=== PATIENT | female | born 1955 | race Caucasian/White ===

== ENCOUNTER 2016-06-02 10:22 | Emergency (ER) | payer OTHER ==
[~2016-06-02] VITALS: Ht 149.9 cm; Wt 62.0 kg
[~2016-06-02 10:22] MED LIST: ACET325T PO; CIPR500T2 PO; CYCL1TAB29 PO; HYDR-3533 PO; LISI10TA3 PO; METR-1 PO; OMEP20TA PO; TYLETAB34 PO; VIST25CA PO
[2016-06-02 10:27] VITALS: BP 134/77; PULSE 62; RESP 16; TEMP 98.3; O2SAT 98
[2016-06-02] MEDS ORDERED: ONDANSETRON HCL 4 MG/2 ML VIAL IV PUSH ONE (10:30)
[2016-06-02] MEDS ORDERED: SODIUM CHLORIDE 0.9% FLUSH 5 ML FLUSH IVF PRN (10:30)
[2016-06-02 10:32] VITALS: BP 134/77; PULSE 65; RESP 24; TEMP 98.3; O2SAT 100
[2016-06-02 10:49] LABS: AUTOMATED NEUTROPHIL # 11.6 TH/MM3 (1.8-7.7); BASOPHIL # 0.1 TH/MM3 (0-0.2); BASOPHIL % 0.7 % (0.0-2.0); EOSINOPHIL # 0.1 TH/MM3 (0-0.4); EOSINOPHIL % 0.6 % (0.0-4.0); HEMATOCRIT 36.3 % (35.0-46.0); LYMPH % 10.3 % (9.0-44.0); LYMPHOCYTE # 1.5 TH/MM3 (1.0-4.8); MEAN CELL VOLUME 89.5 FL (80.0-100.0); MEAN CORPUSCULAR HEMOGLOBIN 30.5 PG (27.0-34.0); MONO % 8.1 % (0.0-8.0); NEUT % 80.3 % (16.0-70.0); PLATELET COUNT 334 TH/MM3 (150-450); RED BLOOD COUNT 4.06 MIL/MM3 (4.00-5.30); RED CELL DISTRIBUTION WIDTH 12.9 % (11.6-17.2); WHITE BLOOD COUNT 14.5 TH/MM3 (4.0-11.0)
[2016-06-02 10:50] LABS: HEMO FLAGS AUTO DIFF
[2016-06-02 10:58] LABS: APTT (PATIENT) 22.1 SEC (24.3-30.1); PROTHROMBIN TIME - PATIENT 10.6 SEC (9.8-11.6)
[2016-06-02 11:01] VITALS: BP 121/79; PULSE 73; RESP 16; O2SAT 97
[2016-06-02] MEDS ORDERED: HYDR50CA PO (11:01)
--- NOTE | 2016-06-02 11:04 | PD ---
HPI Chief Complaint: Cardiac Complaint Time Seen by Provider: 10:30 Travel History International Travel<30 days: No Contact w/Intl Traveler<30days: No Traveled to known affect area: No History of Present Illness HPI Patient is a 60-year-old female with history of HTN, breast cancer undergoing radiation therapy here with complaint of a near syncopal episode. Patient states that she was doing housework when she felt lightheaded and dizzy, and had a slight vertiginous symptoms as though she might faint. She did not have a syncopal episode but lowered herself to the ground. When EMS arrived, noted blood pressure 70/40. Patient was given 400 mL normal saline bolus in route, with improvement of blood pressure into the 120 systolic. Blood glucose is 121. Apparently last night after drinking she had a fall, describes this as mechanical and sustained a superficial laceration to the chin. Denies LOC or headache. She has had several month history of shortness of breath and is a half pack per day smoker. Denies any history of DVT, PE. States that she has breast cancer in the left breast only, and to her knowledge and has not metastasized elsewhere. Patient's symptoms have essentially resolved at this time, only complaining of slight nausea. PFSH Past Medical History Blood Disorders: No Anxiety: Yes Heart Rhythm Problems: No Cancer: Yes (BREAST ) Cardiac Catheterization: No Cardiovascular Problems: Yes (HTN) High Cholesterol: No Congestive Heart Failure: No Diabetes: No Diminished Hearing: No Endocrine: No Hepatitis: No Hiatal Hernia: No Hypertension: Yes Immune Disorder: No Psychiatric: No Reproductive: No Respiratory: No Immunizations Current: No Myocardial Infarction: No Thyroid Disease: No Influenza Vaccination: No Menopausal: Yes : 2 Para: 2 Ovarian Cysts: Yes Dilation and Curettage (D&C): Yes Tubal Ligation: Yes Past Surgical History Coronary Artery Bypass Graft: No Gynecologic Surgery: Yes (TUBAL LIGATION) Mastectomy: Yes Pacemaker: No Other Surgery: Yes (BREAST AUG) Social History Alcohol Use: Yes (BEER/WINE WEEKLY) Tobacco Use: Yes Substance Use: No Allergies-Medications (Allergen,Severity, Reaction): Coded Allergies: No Known Allergies (Verified , 04/04/16) Reported Meds & Prescriptions Reported Meds & Active Scripts Active Reported Hydroxyzine Pamoate 50 Mg Cap 37.5 Mg PO HS Tylenol-Codeine #3 (Acetaminophen-Codeine) 300-30 mg Tab 1 Tab PO NEEDED PRN Acetaminophen 325 Mg Tab 650 Mg PO Q4-6H PRN Omeprazole 20 Mg Tab 20 Mg PO BID PRN Lisinopril 10 Mg Tab 10 Mg PO BID Review of Systems Except as stated in HPI: all other systems reviewed are Neg Physical Exam Narrative GENERAL: Adult female smelling heavily of alcohol in no acute distress SKIN: Warm and dry. Superficial laceration to the chin, hemostatic HEAD: Atraumatic. Normocephalic. EYES: Pupils equal and round. No scleral icterus. No injection or drainage. ENT: No nasal bleeding or discharge. Mucous membranes pink and moist. NECK: Supple without bruit, midline tenderness to palpation CARDIOVASCULAR: Regular rate and rhythm. No murmur appreciated. RESPIRATORY: No accessory muscle use. Clear to auscultation. Breath sounds equal bilaterally. GASTROINTESTINAL: Abdomen soft, non-tender, nondistended. MUSCULOSKELETAL: Moves all extremity's normally NEUROLOGICAL: Awake and alert. No obvious cranial nerve deficits. Motor grossly within normal limits. Normal speech. PSYCHIATRIC: Appropriate mood and affect; insight and judgment normal. Data Data Last Documented VS Vital Signs Date Time Temp Pulse Resp B/P Pulse Ox O2 Delivery O2 Flow Rate FiO2 06/02/16 11:01 73 16 121/79 97 Room Air 06/02/16 10:32 98.3 Orders Electrocardiogram (06/02/16 10:30) Basic Metabolic Panel (Bmp) (06/02/16 10:30) Complete Blood Count With Diff (06/02/16 10:30) Troponin I (06/02/16 10:30) Act Partial Throm Time (Ptt) (06/02/16 10:30) Prothrombin Time / Inr (Pt) (06/02/16 10:30) Ecg Monitoring (06/02/16 10:30) Iv Access Insert/Monitor (06/02/16 10:30) Oximetry (06/02/16 10:30) Sodium Chloride 0.9% Flush (Ns Flush) (06/02/16 10:30) Alcohol (Ethanol) (06/02/16 10:30) Ct Pulmonary Angiogram (06/02/16 10:30) Ondansetron Inj (Zofran Inj) (06/02/16 10:30) Ct Brain W/O Iv Contrast(Rout) (06/02/16 ) Sodium Chlor 0.9% 1000 Ml Inj (Ns 1000 M (06/02/16 11:30) Acetaminophen (Tylenol) (06/02/16 11:30) Iodixanol 320 Inj (Rad Ct) (Visipaque 32 (06/02/16 11:49) Labs Laboratory Tests Test 06/02/16 10:31 White Blood Count 14.5 TH/MM3 Red Blood Count 4.06 MIL/MM3 Hemoglobin 12.4 GM/DL Hematocrit 36.3 % Mean Corpuscular Volume 89.5 FL Mean Corpuscular Hemoglobin 30.5 PG Mean Corpuscular Hemoglobin 34.0 % Concent Red Cell Distribution Width 12.9 % Platelet Count 334 TH/MM3 Mean Platelet Volume 6.8 FL Neutrophils (%) (Auto) 80.3 % Lymphocytes (%) (Auto) 10.3 % Monocytes (%) (Auto) 8.1 % Eosinophils (%) (Auto) 0.6 % Basophils (%) (Auto) 0.7 % Neutrophils # (Auto) 11.6 TH/MM3 Lymphocytes # (Auto) 1.5 TH/MM3 Monocytes # (Auto) 1.2 TH/MM3 Eosinophils # (Auto) 0.1 TH/MM3 Basophils # (Auto) 0.1 TH/MM3 CBC Comment AUTO DIFF Differential Total Cells 100 Counted Neutrophils % (Manual) 71 % Band Neutrophils % 4 % Lymphocytes % 14 % Monocytes % 9 % Basophils % 1 % Neutrophils # (Manual) 11.0 TH/MM3 Metamyelocytes 1 % Differential Comment FINAL DIFF MANUAL Platelet Estimate NORMAL Platelet Morphology Comment NORMAL Red Cell Morphology Comment NORMAL Prothrombin Time 10.6 SEC Prothromb Time International 1.0 RATIO Ratio Activated Partial 22.1 SEC Thromboplast Time Sodium Level 139 MEQ/L Potassium Level 4.2 MEQ/L Chloride Level 104 MEQ/L Carbon Dioxide Level 24.8 MEQ/L Anion Gap 10 MEQ/L Blood Urea Nitrogen 17 MG/DL Creatinine 1.44 MG/DL Estimat Glomerular Filtration 37 ML/MIN Rate Random Glucose 88 MG/DL Calcium Level 8.6 MG/DL Troponin I LESS THAN 0.02 NG/ML Ethyl Alcohol Level 131 MG/DL [facility] Medical Decision Making Medical Screen Exam Complete: Yes Emergency Medical Condition: Yes Medical Record Reviewed: Yes Differential Diagnosis 60-year-old female with history of HTN, breast cancer undergoing radiation therapy here with near syncopal episode and hypotension per EMS not results. Differential includes vasovagal spell, orthostatic hypotension, dehydration, electrolyte abnormality, symptomatic anemia, ACS, arrhythmia, pulmonary embolism , closed head injury, skull fracture, ICH, alcohol intoxication, central versus peripheral vertigo. Narrative Course Patient placed on monitor, IV established and blood obtained. A twelve-lead EKG shows sinus rhythm without notable ST or T-wave abnormalities and normal intervals. Given 4 mg Zofran. CBC, BMP, troponin, coags, blood alcohol level obtained and notable for WBC 14.5, blood alcohol level 131. CT of the brain showed no acute abnormality. CT pulmonary angiogram showed no evidence of PE. Patient was able ambulate without any difficulty. Blood pressure remained stable and patient will be discharged home. Diagnosis Primary Impression: Orthostatic hypotension Additional Impression: Pre-syncope Referrals: Primary Care Physician as needed Additional Instructions: Follow-up with primary care provider as needed. Return to the ER for the warning signs discussed. Med/Other Pt SpecificInfo: No Change to Meds Disposition: 01 DISCHARGE HOME Condition: Stable Irma Rebolledo MD Jun 02, 2016 11:04
[2016-06-02 11:11] LABS: ANION GAP 10 MEQ/L (5-15); BICARBONATE 24.8 MEQ/L (21.0-32.0); BLOOD UREA NITROGEN 17 MG/DL (7-18); CHLORIDE 104 MEQ/L (98-107); GLOMERULAR FILTRATION RATE 37 ML/MIN (>89); POTASSIUM 4.2 MEQ/L (3.5-5.1); SODIUM (NA) 139 MEQ/L (136-145)
[2016-06-02 11:28] LABS: BANDS 4 % (0-6); BASOPHILS 1 % (0-2); METAMYELOCYTES 1 % (0-1); POLYS (SEG NEUTROPHILS) 71 % (16-70); WBC DIFF SAMPLE 100
[2016-06-02 11:29] LABS: PLATELET ESTIMATE SMEAR NORMAL (NORMAL); PLATELET MORPHOLOGY NORMAL (NORMAL); SCAN/DIFF FINAL DIFF MANUAL
[2016-06-02] MEDS ORDERED: SODIUM CHLOR 0.9% 1000 ML INJ 1,000 ML IV ONE (11:30)
[2016-06-02] MEDS ORDERED: ACETAMINOPHEN 500 MG CPLT PO ONE (11:30)
[2016-06-02] MEDS ORDERED: IODIXANOL 320 MG/ML 50 ML VIAL (for Rad CT) IV ONE (11:49)
--- NOTE | 2016-06-02 12:01 | RADRPT ---
EXAM DATE/TIME: 06/02/2016 11:36 [facility] COMPARISON: CT ABDOMEN & PELVIS W CONTRAST, May 11, 2016, 22:18. INDICATIONS : Evaaluate for emboli. IV CONTRAST: 50 cc Visipaque (iodixanol) IV RADIATION DOSE: 12.45 CTDIvol (mGy) MEDICAL HISTORY : Carcinoma, breast. SURGICAL HISTORY : Breast implants. ENCOUNTER: Initial ACUITY: 1 day PAIN SCALE: 0/10 LOCATION: Bilateral chest TECHNIQUE: Volumetric scanning of the chest was performed using a pulmonary embolism protocol MIP images were reconstructed. Using automated exposure control and adjustment of the mA and/or kV acco rding to patient size, radiation dose was kept as low as reasonably achievable to obtain optimal diag nostic quality images. FINDINGS: There are no suspicious lung lesions identified. There is no axillary or mediastinal adenopathy. There is good visualization of the central pulmonary vessels. I see no evidence for central pulmonar y emboli. The portion of the liver and spleen identified are free of focal defects. Calcification is seen in t he dome of the liver. CONCLUSION: There is no evidence for central pulmonary emboli. Calcifications present in the dom e of the liver described on the CT scan of 05/11/16 Sandor Gutierrez MD FACR on June 02, 2016 at 11:58 Board Certified Radiologist. This report was verified electronically.
--- NOTE | 2016-06-02 12:05 | RADRPT ---
EXAM DATE/TIME: 06/02/2016 11:35 [facility] COMPARISON: CT BRAIN W/O CONTRAST, January 16, 2013, 23:56. INDICATIONS : Syncopal episode. RADIATION DOSE: 56.35 CTDIvol (mGy) MEDICAL HISTORY : Carcinoma, breast. SURGICAL HISTORY : None. ENCOUNTER: Initial ACUITY: 1 day PAIN SCALE: 0/10 LOCATION: cranial TECHNIQUE: Multiple contiguous axial images were obtained of the head. Using automated exposure control and adj ustment of the mA and/or kV according to patient size, radiation dose was kept as low as reasonably a chievable to obtain optimal diagnostic quality images. FINDINGS: CEREBRUM: The ventricles are normal for age. No evidence of midline shift, mass lesion, hemorrhage or acute in farction. No extra-axial fluid collections are seen. POSTERIOR FOSSA: The cerebellum and brainstem are intact. The 4th ventricle is midline. The cerebellopontine angle i s unremarkable. EXTRACRANIAL: The visualized portion of the orbits is intact. SKULL: The calvaria is intact. No evidence of skull fracture. CONCLUSION: Negative for an acute process. Sandor Gutierrez MD FACR on June 02, 2016 at 12:01 Board Certified Radiologist. This report was verified electronically.
[2016-06-02 12:38] VITALS: BP 121/70; PULSE 75; RESP 16; O2SAT 97
--- NOTE | 2016-06-02 17:40 | EKG ---
Date Performed: 06/02/2016 Time Performed: 10:30:02 PTAGE: 60 years EKG: Sinus rhythm NORMAL ECG PREVIOUS TRACING : 06/08/2015 17.48 No significant change from previous tracing noted. DOCTOR: Karthik Rapp Interpretating Date/Time 06/02/2016 17:39:02
[2016-07-05] MEDS ORDERED: ANAS1TAB PO (10:19)
[2016-07-05] MEDS ORDERED: VENL75TA PO (10:19)
[2016-07-05] MEDS ORDERED: CYCL1TAB29 PO (10:19)
[2016-08-08] MEDS ORDERED: LISI10TA3 PO ×2 (15:24→15:25)
== END 2016-06-02 12:56 | disposition home or self-care (01) ==
LOC: NEPC 10:22
DX: I95.1 Orthostatic hypotension (principal); R55 Syncope and collapse; I10 Essential (primary) hypertension; R06.02 Shortness of breath; F17.210 Nicotine dependence, cigarettes, uncomplicated; S01.81XA Laceration without foreign body of other part of head, initial encounter; C50.912 Malignant neoplasm of unspecified site of left female breast
CPT/HCPCS: 70450; 71275; 80048; 80320; 84484; 85007; 85027; 85610; 85730; 93005; 96361; 96374; 99285; J2405; J7030; Q9967

== ENCOUNTER 2016-08-02 23:41 | Inpatient (IN) | payer OTHER ==
[~2016-08-02] VITALS: Ht 149.9 cm; Wt 64.9 kg
[~2016-08-02 23:41] MED LIST changes: +ANAS1TAB PO; -CIPR500T2 PO; -HYDR-3533 PO; +HYDR50CA PO; -METR-1 PO; +VENL75TA PO; -VIST25CA PO
[2016-08-02 23:48] VITALS: BP 123/74; PULSE 73; RESP 20; TEMP 97.9; O2SAT 99
--- NOTE | 2016-08-02 23:56 | PD ---
HPI Chief Complaint: Injury Time Seen by Provider: 23:53 Travel History International Travel<30 days: No Contact w/Intl Traveler<30days: No Traveled to known affect area: No History of Present Illness HPI 61-year-old female complains of right ankle pain. Patient states that she fell and twisted the right ankle this evening. Patient denies any headache. Patient denies any neck pain. Patient denies any chest pain or shortness of breath. Patient denies abdominal pain. Patient denies any other injury. Patient states the pain is sharp severe pain localized to right ankle. Patient denies any pain radiation. On a scale of 1-10 the pain is a 10. PFSH Past Medical History Blood Disorders: No Anxiety: Yes Heart Rhythm Problems: No Cancer: Yes (BREAST ) Cardiac Catheterization: No Cardiovascular Problems: Yes (HTN) High Cholesterol: No Congestive Heart Failure: No Diabetes: No Diminished Hearing: No Endocrine: No Hepatitis: No Hiatal Hernia: No Hypertension: Yes Immune Disorder: No Psychiatric: No Reproductive: No Respiratory: No Immunizations Current: No Myocardial Infarction: No Thyroid Disease: No ?: Not Menopausal: Yes : 2 Para: 2 Ovarian Cysts: Yes Dilation and Curettage (D&C): Yes Tubal Ligation: Yes Past Surgical History Coronary Artery Bypass Graft: No Gynecologic Surgery: Yes (TUBAL LIGATION) Mastectomy: Yes Pacemaker: No Other Surgery: Yes (BREAST AUG) Social History Alcohol Use: Yes (BEER/WINE WEEKLY) Tobacco Use: Yes Substance Use: No Allergies-Medications (Allergen,Severity, Reaction): Coded Allergies: No Known Allergies (Verified , 08/02/16) Reported Meds & Prescriptions Reported Meds & Active Scripts Active Reported Flexeril (Cyclobenzaprine HCl) 10 Mg Tab 10 Mg PO TID PRN Anastrozole 1 Mg Tab 1 Mg PO DAILY Hydroxyzine Pamoate 50 Mg Cap 37.5 Mg PO HS Tylenol-Codeine #3 (Acetaminophen-Codeine) 300-30 mg Tab 1 Tab PO NEEDED PRN Acetaminophen 325 Mg Tab 650 Mg PO Q4-6H PRN Omeprazole 20 Mg Tab 20 Mg PO BID PRN Lisinopril 10 Mg Tab 10 Mg PO BID Review of Systems General / Constitutional: No: Fever Eyes: No: Visual changes HENT: No: Headaches Cardiovascular: No: Chest Pain or Discomfort Respiratory: No: Shortness of Breath Gastrointestinal: No: Abdominal Pain Genitourinary: No: Dysuria Musculoskeletal: Positive: Pain Skin: No Rash Neurologic: No: Weakness Psychiatric: No: Depression Endocrine: No: Polydipsia Hematologic/Lymphatic: No: Easy Bruising Physical Exam Narrative GENERAL: Well-nourished, well-developed patient. SKIN: Warm and dry. HEAD: Normocephalic. EYES: No scleral icterus. No injection or drainage. NECK: Supple, trachea midline. No JVD or lymphadenopathy. CARDIOVASCULAR: Regular rate and rhythm without murmurs, gallops, or rubs. RESPIRATORY: Breath sounds equal bilaterally. No accessory muscle use. GASTROINTESTINAL: Abdomen soft, non-tender, nondistended. MUSCULOSKELETAL: Patient ecchymosis swelling tenderness medial and lateral malleolus area of the right ankle. Full range of motion of the toes. BACK: Nontender without obvious deformity. No CVA tenderness. Neurologic exam normal Data Data Last Documented VS Vital Signs Date Time Temp Pulse Resp B/P Pulse Ox O2 Delivery O2 Flow Rate FiO2 08/02/16 23:51 75 20 99 Room Air 08/02/16 23:48 97.9 123/74 Orders Ankle, Complete ([id number]) (08/02/16 23:53) Complete Blood Count With Diff (08/03/16 00:48) Basic Metabolic Panel (Bmp) (08/03/16 00:48) Prothrombin Time / Inr (Pt) (08/03/16 00:48) Act Partial Throm Time (Ptt) (08/03/16 00:48) Urinalysis - C+S If Indicated (08/03/16 00:48) Chest, Single Ap (08/03/16 00:48) Iv Access Insert/Monitor (08/03/16 00:48) Morphine Inj (Morphine Inj) (08/03/16 01:00) Ondansetron Inj (Zofran Inj) (08/03/16 01:00) Splint Or Brace Apply/Monitor (08/03/16 01:14) Sodium Chlor 0.9% 1000 Ml Inj (Ns 1000 M (08/03/16 01:15) Labs Laboratory Tests Test 08/03/16 00:58 White Blood Count 11.3 TH/MM3 Red Blood Count 4.58 MIL/MM3 Hemoglobin 13.8 GM/DL Hematocrit 41.2 % Mean Corpuscular Volume 89.9 FL Mean Corpuscular Hemoglobin 30.1 PG Mean Corpuscular Hemoglobin 33.5 % Concent Red Cell Distribution Width 13.7 % Platelet Count 342 TH/MM3 Mean Platelet Volume 6.9 FL Neutrophils (%) (Auto) 72.4 % Lymphocytes (%) (Auto) 17.4 % Monocytes (%) (Auto) 7.8 % Eosinophils (%) (Auto) 1.8 % Basophils (%) (Auto) 0.6 % Neutrophils # (Auto) 8.2 TH/MM3 Lymphocytes # (Auto) 2.0 TH/MM3 Monocytes # (Auto) 0.9 TH/MM3 Eosinophils # (Auto) 0.2 TH/MM3 Basophils # (Auto) 0.1 TH/MM3 CBC Comment DIFF FINAL Differential Comment MDM Medical Decision Making Medical Screen Exam Complete: Yes Emergency Medical Condition: Yes Differential Diagnosis Differential diagnosis including sprain, fracture, dislocation. Narrative Course 61-year-old female with right ankle injury. Normal saline solution 1 25 cc an hour. Morphine 2 mg IV. Zofran 4 mg IV. Diagnosis Primary Impression: Fracture dislocation of right ankle joint Qualified Code: S82.891A - Fracture dislocation of right ankle joint, closed, initial encounter Admitting Information Admitting Physician Requests: Admit Carlos Rojas MD Aug 02, 2016 23:56
[2016-08-03] MEDS ORDERED: MORPHINE SULFATE 4 MG/ML INJ IV PUSH ONE (01:00)
[2016-08-03] MEDS ORDERED: ONDANSETRON HCL 4 MG/2 ML VIAL IV PUSH ONE ×2 (01:00→11:32)
--- NOTE | 2016-08-03 01:03 | RADRPT ---
EXAM DATE/TIME: 08/03/2016 00:19 [facility] COMPARISON: No previous studies available for comparison. INDICATIONS : Tripped while walking, right ankle pain. MEDICAL HISTORY : None. SURGICAL HISTORY : None. ENCOUNTER: Initial ACUITY: 1 day PAIN SCORE: 8/10 LOCATION: Right medial ankle. FINDINGS: There is a horizontal fracture of the medial malleolus with inferior and lateral displacement of the fracture fragment. There is an oblique fracture of the distal metaphysis of the fibula with one half shaft width lateral displacement of the distal fracture fragment. Small bony fragments in the soft tissue adjacent to the proximal line of the fracture. There is disruption of the ankle mortise with the talus displaced anterior and widening of the medial mortise. No radiopaque foreign bodies seen. CONCLUSION: Fracture dislocation of the ankle suggesting an eversion type injury. Patricio Marquis MD on August 03, 2016 at 1:00 Board Certified Radiologist. This report was verified electronically.
[2016-08-03] MEDS ORDERED: SODIUM CHLOR 0.9% 1000 ML INJ 1,000 ML IV SCH ×2 (01:15→01:56)
--- NOTE | 2016-08-03 01:18 | RADRPT ---
EXAM DATE/TIME: 08/03/2016 00:58 [facility] COMPARISON: CHEST SINGLE AP, June 08, 2015, 9:54. INDICATIONS : Evaluate for pneumonia, pneumothorax or communicable disease. Pre-op for right ankle fracture. MEDICAL HISTORY : Carcinoma, breast. SURGICAL HISTORY : None. ENCOUNTER: Subsequent ACUITY: 1 day PAIN SCORE: 0/10 LOCATION: Bilateral chest FINDINGS: A single view of the chest demonstrates the lungs to be symmetrically aerated without evidence of mas s, infiltrate or effusion. The cardiomediastinal contours are unremarkable. Osseous structures are intact. CONCLUSION: The lungs are clear. Patricio Marquis MD on August 03, 2016 at 1:17 Board Certified Radiologist. This report was verified electronically.
[2016-08-03 01:21] LABS: AUTOMATED NEUTROPHIL # 8.2 TH/MM3 (1.8-7.7); BASOPHIL # 0.1 TH/MM3 (0-0.2); BASOPHIL % 0.6 % (0.0-2.0); EOSINOPHIL # 0.2 TH/MM3 (0-0.4); EOSINOPHIL % 1.8 % (0.0-4.0); HEMATOCRIT 41.2 % (35.0-46.0); HEMO FLAGS DIFF FINAL; LYMPH % 17.4 % (9.0-44.0); MEAN CELL VOLUME 89.9 FL (80.0-100.0); MEAN CORPUSCULAR HEMOGLOBIN 30.1 PG (27.0-34.0); MEAN CORPUSCULAR HGB CONC 33.5 % (32.0-36.0); MONO % 7.8 % (0.0-8.0); NEUT % 72.4 % (16.0-70.0); PLATELET COUNT 342 TH/MM3 (150-450); RED BLOOD COUNT 4.58 MIL/MM3 (4.00-5.30); RED CELL DISTRIBUTION WIDTH 13.7 % (11.6-17.2); WHITE BLOOD COUNT 11.3 TH/MM3 (4.0-11.0)
[2016-08-03 01:48] LABS: APTT (PATIENT) 26.5 SEC (24.3-30.1); INTERNATIONAL NORMALIZED RATIO 0.9 RATIO; PROTHROMBIN TIME - PATIENT 10.2 SEC (9.8-11.6)
[2016-08-03 01:52] LABS: BICARBONATE 25.7 MEQ/L (21.0-32.0); POTASSIUM 4.2 MEQ/L (3.5-5.1)
[2016-08-03] MEDS ORDERED: SODIUM CHLORIDE 0.9% FLUSH 5 ML FLUSH FLUSH PRN (02:00)
[2016-08-03] MEDS ORDERED: ACETAMINOPHEN/HYDROcodone 325 MG/5 MG TAB PO PRN (02:00)
[2016-08-03] MEDS ORDERED: ONDANSETRON HCL 4 MG/2 ML VIAL IVP PRN (02:00)
[2016-08-03] MEDS ORDERED: BISACODYL 10 MG SUPP PR PRN (02:00)
[2016-08-03] MEDS ORDERED: MORPHINE SULFATE 4 MG/ML INJ IV PRN (02:00)
[2016-08-03] MEDS ORDERED: CYCLOBENZAPRINE HCL 10 MG TAB PO PRN (02:00)
[2016-08-03] MEDS ORDERED: ACETAMINOPHEN 325 MG TAB PO PRN (02:00)
[2016-08-03] MEDS ORDERED: VENLAFAXINE HCL 75 MG TAB PO PRN (02:15)
[2016-08-03 03:54] VITALS: BP 117/82; PULSE 86; RESP 20; TEMP 97.2; O2SAT 97
--- NOTE | 2016-08-03 03:55 | HHI.HP ---
HPI Service [facility] Primary Care Physician RUBEN Castro Admission Diagnosis fracture dislocation right ankle Diagnoses: (1) Fall Diagnosis: Principal (2) Ankle fracture, right Diagnosis: Principal (3) Leukocytosis Diagnosis: Principal (4) Tobacco abuse Diagnosis: Principal Travel History International Travel<30 Days: No Contact w/Intl Traveler <30 Da: No Traveled to Known Affected Are: No History of Present Illness This is a 61-year-old female with a PMH of Anxiety, HTN, Breast CA and Tobacco Abuse who is brought to the ER with complaints of right ankle pain after fall. Per pt she was walking down steps at her home when she slipped and fell. No head trauma or LOC. Does admit to drinking several beers and some wine this evening, no h/o Alcohol Abuse. Reports immediate right ankle pain, unable to bare weight. On arrival, vital stable. WBC 11.3. Chemistry unremarkable. CXR with no acute findings. Ankle X-ray with fracture dislocation of the ankle suggesting an inversion type injury. Dr. Frazier consulted by ER physician, is for surgical intervention. Review of Systems Except as stated in HPI: all other systems reviewed are Neg ROS: 14 point review of systems otherwise negative. Past Family Social History Past Medical History PMH: Anxiety, HTN, Breast CA and Tobacco Abuse Past Surgical History PAST SURGICAL HISTORY: Tubal Ligation, Mastectomy, Breast Augmentation Allergies: Coded Allergies: No Known Allergies (Verified , 08/02/16) Family History PAST FAMILY HISTORY: Reviewed. No h/o DM or CAD Social History PAST SOCIAL HISTORY: Drinks weekly. Smokes 1ppd. Negative for drugs. Physical Exam Vital Signs Vital Signs Date Time Temp Pulse Resp B/P Pulse Ox O2 Delivery O2 Flow Rate FiO2 08/02/16 23:51 75 20 99 Room Air 08/02/16 23:48 97.9 73 20 123/74 99 Physical Exam PE: GENERAL: Middle-aged female in no acute distress. HEENT: PERRLA, EOMI. No scleral icterus or conjunctival pallor. No lid lag or facial droop. CARDIOVASCULAR: Regular rate and rhythm. No obvious murmurs to auscultation. No chest tenderness to palpation. RESPIRATORY: No obvious rhonchi or wheezing. Clear to auscultation. Breath sounds equal bilaterally. GASTROINTESTINAL: Abdomen soft, non-tender, nondistended. BS normal. MUSCULOSKELETAL: Extremities without clubbing, cyanosis, or edema. No obvious deformities. Decreased ROM of RLE due to injury NEUROLOGICAL: Awake, alert and oriented x4. No focal neurologic deficits. Moving both upper and lower extremities spontaneously. Laboratory Laboratory Tests Test 08/03/16 00:58 White Blood Count 11.3 Red Blood Count 4.58 Hemoglobin 13.8 Hematocrit 41.2 Mean Corpuscular Volume 89.9 Mean Corpuscular Hemoglobin 30.1 Mean Corpuscular Hemoglobin 33.5 Concent Red Cell Distribution Width 13.7 Platelet Count 342 Mean Platelet Volume 6.9 Neutrophils (%) (Auto) 72.4 Lymphocytes (%) (Auto) 17.4 Monocytes (%) (Auto) 7.8 Eosinophils (%) (Auto) 1.8 Basophils (%) (Auto) 0.6 Neutrophils # (Auto) 8.2 Lymphocytes # (Auto) 2.0 Monocytes # (Auto) 0.9 Eosinophils # (Auto) 0.2 Basophils # (Auto) 0.1 CBC Comment DIFF FINAL Differential Comment Prothrombin Time 10.2 Prothromb Time International 0.9 Ratio Activated Partial 26.5 Thromboplast Time Sodium Level 140 Potassium Level 4.2 Chloride Level 106 Carbon Dioxide Level 25.7 Anion Gap 8 Blood Urea Nitrogen 10 Creatinine 0.64 Estimat Glomerular Filtration 94 Rate Random Glucose 100 Calcium Level 8.7 Result Diagram: 08/03/165708/03/1657 Assessment and Plan Problem List: (1) Fall ICD Code: W19.XXXA Status: Acute (2) Ankle fracture, right ICD Code: S82.891A Status: Acute (3) Leukocytosis ICD Code: D72.829 Status: Acute (4) Tobacco abuse ICD Code: Z72.0 Status: Acute Assessment and Plan A/P: 1. Fall: s/p mechanical trip and fall down stairs at home, no head trauma or LOC, +alcohol intoxication however no h/o alcohol abuse. 2. Right Ankle Fx: secondary to above. Ankle X-ray w/ fracture dislocation of the ankle suggesting an eversion type injury, images reviewed by me. Dr. Frazier consulted by ER physician, plan is for surgical intervention a.m. Keep NPO, IVF, analgesics/antiemetics. 3. Leukocytosis: WBC 11.3 w/ mild shift, afebrile. Likely secondary to recent injury. CXR w/ no acute findings, images reviewed by me. Repeat labs in am. 4. Tobacco Abuse: Pt counselled. Ativan/NicoDerm prn if needed. 5. DVT Prophylaxis: Anticoagulation post-op per Ortho 6. Social work for d/c planning as needed. 7. Case discussed w/ ER physician at length. Physician Certification 2 Midnight Certification Type: Admission for Inpatient Services Order for Inpatient Services The services are ordered in accordance with Medicare regulations or non- Medicare payer requirements, as applicable. In the case of services not specified as inpatient-only, they are appropriately provided as inpatient services in accordance with the 2-midnight benchmark. Estimated LOS (days): 2 days is the estimated time the patient will need to remain in the hospital, assuming treatment plan goals are met and no additional complications. Post-Hospital Plan: Not yet determined Sana Cruz MD Aug 03, 2016 03:55
[2016-08-03] MEDS ORDERED: ceFAZolin INJ 1,000 MG VIAL ONE (07:15)
[2016-08-03] MEDS ORDERED: GENTAMICIN SULFATE 80 MG/2 ML VIAL ONE (07:15)
[2016-08-03] MEDS ORDERED: BUPIVACAINE HCL PF 0.5% 30 ML VIAL ONE (07:15)
[2016-08-03] MEDS ORDERED: VANCOMYCIN HCL 1000 MG VIAL ONE (07:15)
[2016-08-03] MEDS ORDERED: DEXAMETHASONE SOD PHOS 4 MG/ML VIAL ONE (07:43)
[2016-08-03] MEDS ORDERED: ACETAMINOPHEN 1000 MG/100 ML VIAL IV ONE (07:43)
[2016-08-03] MEDS ORDERED: FAMOTIDINE 20 MG/2 ML VIAL ONE (07:45)
[2016-08-03] MEDS: LISINOPRIL 10 MG TAB PO SCH ×2 (09:00→20:21)
[2016-08-03] MEDS: ANASTROZOLE 1 MG TAB PO SCH (09:00)
[2016-08-03] MEDS ORDERED: SODIUM CHLORIDE 0.9% FLUSH 5 ML FLUSH FLUSH SCH (09:00)
[2016-08-03] MEDS ORDERED: HYDR-3288 PO (09:25)
[2016-08-03] MEDS ORDERED: NALOXONE HCL 0.4 MG/ML AMP IV PRN (09:30)
[2016-08-03] MEDS ORDERED: MISCELLANEOUS PHARMACY INFORMATION XX ONE (09:30)
[2016-08-03] MEDS ORDERED: SODIUM CHLORIDE 0.9% FLUSH 5 ML FLUSH IVF PRN (09:30)
[2016-08-03] MEDS ORDERED: MISCELLANEOUS NURSING INFORMATION XX PRN (09:30)
[2016-08-03] MEDS ORDERED: Post-op Orders (for Pharmacy) MISC XX ONE (09:30)
[2016-08-03] MEDS ORDERED: DO NOT ADM ANY ANTICOAGULANT DRUGS XX PRN (09:44)
[2016-08-03] MEDS ORDERED: MIDAZOLAM HCL 2 MG/2 ML VIAL ONE (09:54)
[2016-08-03] MEDS ORDERED: *morphine SULFATE 8 MG/ML PERIprocedure ONLY ONE (09:55)
[2016-08-03] MEDS ORDERED: *RESP: ALBUTEROL 2.5 MG/3 ML NEB (PRN) PERIprocedural Use ONLY NEB ONE (09:56)
[2016-08-03] MEDS ORDERED: MAGNESIUM HYDROXIDE SUSP 30 ML CUP PO PRN (10:00)
[2016-08-03] MEDS: DEXT 5%-NACL 0.45% 1000 ML INJ 1,000 ML IV SCH ×2 (10:00→20:00)
[2016-08-03] MEDS ORDERED: PANTOPRAZOLE SOD 20 MG DELAYED RELEASE TAB PO PRN (10:00)
[2016-08-03] MEDS ORDERED: ACETAMINOPHEN/HYDROcodone 325 MG/7.5 MG TAB PO PRN (10:00)
[2016-08-03] MEDS ORDERED: diphenhydrAMINE HCL 25 MG CAP PO PRN (10:00)
[2016-08-03] MEDS ORDERED: *HYDROmorphone PF 1 MG VIAL PERIprocedural Use ONLY ONE (10:05)
--- NOTE | 2016-08-03 10:20 | RADRPT ---
EXAM DATE/TIME: 08/03/2016 09:16 [facility] COMPARISON: No previous studies available for comparison. INDICATIONS : Open reduction internal fixation of right ankle fracture MEDICAL HISTORY : None. SURGICAL HISTORY : None. ENCOUNTER: Initial ACUITY: 1 day PAIN SCORE: Non-responsive. LOCATION: Right ankle FINDINGS: Two view examination was performed of the right ankle. There is a plate along the lateral aspect of the fibula secured by several screws. There are 2 screws through the medial malleolus and distal tibi a. The ankle appears normally aligned. CONCLUSION: Status post ORIF. Koffi Mcgee MD on August 03, 2016 at 10:17 Board Certified Radiologist. This report was verified electronically.
[2016-08-03] MEDS ORDERED: PROPOFOL 200 MG/20 ML AMP IV ONE (11:32)
[2016-08-03] MEDS ORDERED: LACTATED RINGER'S 1000 ML INJ 1,000 ML IV ONE (11:33)
[2016-08-03] MEDS: ONDANSETRON HCL 4 MG/2 ML VIAL IVP PRN ×2 (11:50→20:20)
[2016-08-03] MEDS: ACETAMINOPHEN/HYDROcodone 325 MG/7.5 MG TAB PO PRN ×2 (11:51→16:31)
[2016-08-03] MEDS: MORPHINE SULFATE 4 MG/ML INJ IV PUSH PRN ×2 (11:51→20:21)
[2016-08-03 12:00] VITALS: BP 128/77; PULSE 88; RESP 18; TEMP 97.2; O2SAT 100
[2016-08-03] MEDS ORDERED: ePHEDrine/NS 25 MG/5 ML SYR IV ONE (12:00)
[2016-08-03] MEDS ORDERED: PHENYLEPH/NS 1000 MCG/10 ML SYR IV ONE (12:00)
--- NOTE | 2016-08-03 12:40 | MB ---
cc: MILENA BETANCOURT DATE OF CONSULTATION: 08/03/2016 REASON FOR CONSULTATION: Right ankle fracture dislocation. HISTORY OF PRESENT ILLNESS: This patient is a 61-year-old female with past history of anxiety, hypertension, breast cancer and tobacco abuse who presented to the [facility] Emergency Room with a chief complaint of severe right ankle pain after a fall. She was going down the stairs. She slipped and fell. She denies loss of consciousness. She was drinking alcohol. She developed the immediate onset of severe pain in the right ankle and was unable to stand, bear weight or move the ankle. No numbness. No tingling. She was given IV morphine. Orthopedic surgery was consulted. She was admitted to the medical service. PAST MEDICAL HISTORY: 1. Anxiety. 2. Hypertension. 3. Breast cancer. 4. Tobacco abuse. PAST SURGICAL HISTORY: 1. Tubal ligation. 2. Mastectomy. 3. Breast augmentation. ALLERGIES: NO KNOWN DRUG ALLERGIES. MEDICATIONS: 1. Lisinopril. 2. Omeprazole. FAMILY HISTORY: Reviewed and noncontributory. SOCIAL HISTORY: She does drink alcohol on a routine basis. She smokes one pack per day. Denies drugs. REVIEW OF SYSTEMS: Negative for ten systems other than the history of present illness. PHYSICAL EXAMINATION: VITAL SIGNS: Temperature 97.9, pulse 73, respirations 20, blood pressure 123/74. GENERAL: In general, the patient is awake, alert, lying in bed in no acute distress. HEAD, EYES, EARS, NOSE, THROAT: Normocephalic and atraumatic. Pupils round and reactive to light. Extraocular muscles intact. NECK: The neck is supple. LUNGS: Clear. HEART: Regular rate and rhythm. ABDOMEN: Abdomen soft and nontender. EXTREMITIES: The right lower extremity has swelling, ecchymosis slight deformity. She is in a well-padded splint. She is tender to palpation along the medial and lateral aspects. She can flex her toes distally with limitation upon motion. LABORATORY STUDIES: White blood cell count 11.3, hemoglobin 30, hematocrit 41. Platelets 342,000. Glucose 100. X-RAYS: Right ankle shows a displaced bimalleolar fracture. IMPRESSION: 1. 61-year-old female status post fall right displaced bimalleolar ankle fracture. 2. History of alcohol intoxication. 3. Tobacco abuse. PLAN: Discussed the diagnosis and treatment options. She was given the option of nonoperative treatment versus surgery to consist of open reduction internal fixation. The risks of surgery were discussed which include but are not limited to anesthesia, bleeding, infection, damage to nerves or blood vessels, pain, stiffness, failure of fixation, painful hardware, nonunion, malunion, blood clots and even . The patient's pain is severe. She favors the benefits over the risks and does wish to proceed with surgery. Written consent has been obtained and we will proceed accordingly. MD BLAYNE Field/LEE /9:30 AM /12:31 PM
[2016-08-03 15:32] LABS: BLOOD, URINE NEG (NEG); COMMENT (UR) CULT NOT INDICATED; CULTURE IF INDICATED CULT NOT INDICATED; GLUCOSE,URINE NEG (NEG); KETONE, URINE NEG (NEG); MUCUS URINE FEW /lpf (OCC); NITRITE,URINE NEG (NEG); SQUAMOUS EPITHELIAL CELL URINE 1 /hpf (0-5); URINE COLOR YELLOW (YELLW/STRAW)
[2016-08-03 16:00] VITALS: BP 121/78; PULSE 84; RESP 18; TEMP 98.3; O2SAT 97
[2016-08-03 16:14] VITALS: O2SAT 98
[2016-08-03 20:17] VITALS: BP 135/82; PULSE 80; RESP 20; TEMP 96; O2SAT 94
[2016-08-03] MEDS: DOCUSATE SODIUM 50 MG/SENNA 8.6 MG TAB PO SCH (20:19)
[2016-08-03] MEDS: SODIUM CHLORIDE 0.9% FLUSH 5 ML FLUSH IVF SCH (20:21)
[2016-08-03] MEDS ORDERED: hydrOXYzine PAMOATE 25 MG CAP PO SCH (21:00)
[2016-08-04 00:23] VITALS: BP 137/88; PULSE 77; RESP 20; TEMP 98.7; O2SAT 94
[2016-08-04] MEDS: MORPHINE SULFATE 4 MG/ML INJ IV PUSH PRN ×3 (01:12→08:52)
[2016-08-04] MEDS: ONDANSETRON HCL 4 MG/2 ML VIAL IVP PRN ×3 (01:12→08:39)
[2016-08-04] MEDS ORDERED: ALUMINUM/MAGNESIUM/SIMETH 30 ML CUP PO PRN (01:15)
[2016-08-04] MEDS ORDERED: oxyCODONE/ACETAMINOPHEN 5 MG/325 MG TAB PO PRN (01:45)
[2016-08-04 04:01] VITALS: BP 140/84; PULSE 72; RESP 21; TEMP 98.7; O2SAT 95
[2016-08-04 06:55] LABS: ALT (GPT) 20 U/L (10-53); ANION GAP 10 MEQ/L (5-15); AST (GOT) 11 U/L (15-37); BLOOD UREA NITROGEN 9 MG/DL (7-18); CHLORIDE 103 MEQ/L (98-107); GLOMERULAR FILTRATION RATE 85 ML/MIN (>89); POTASSIUM 3.9 MEQ/L (3.5-5.1); SODIUM (NA) 140 MEQ/L (136-145)
[2016-08-04 06:58] LABS: ALKALINE PHOSPHATASE 70 U/L (45-117); AUTOMATED NEUTROPHIL # 9.1 TH/MM3 (1.8-7.7); BASOPHIL # 0.1 TH/MM3 (0-0.2); BASOPHIL % 0.5 % (0.0-2.0); EOSINOPHIL % 0.1 % (0.0-4.0); HEMATOCRIT 35.2 % (35.0-46.0); HEMO FLAGS DIFF FINAL; LYMPH % 16.6 % (9.0-44.0); LYMPHOCYTE # 2.1 TH/MM3 (1.0-4.8); MEAN CELL VOLUME 89.1 FL (80.0-100.0); MEAN CORPUSCULAR HEMOGLOBIN 30.6 PG (27.0-34.0); MEAN CORPUSCULAR HGB CONC 34.3 % (32.0-36.0); NEUT % 71.8 % (16.0-70.0); PLATELET COUNT 296 TH/MM3 (150-450); RED BLOOD COUNT 3.95 MIL/MM3 (4.00-5.30); RED CELL DISTRIBUTION WIDTH 13.5 % (11.6-17.2); TOTAL BILIRUBIN ADULT 0.3 MG/DL (0.2-1.0); WHITE BLOOD COUNT 12.6 TH/MM3 (4.0-11.0)
[2016-08-04 07:37] VITALS: BP 160/89; PULSE 80; RESP 16; TEMP 97.3; O2SAT 93
[2016-08-04 08:24] VITALS: O2SAT 94
--- NOTE | 2016-08-04 08:37 | PD.ORT.PN ---
Subjective Subjective Remarks Moderate right ankle pain. Aching, throbbing. Sensation ok. No other complaints of CP, SOB or abd pain. Objective Vitals Vital Signs Date Time Temp Pulse Resp B/P Pulse Ox O2 Delivery O2 Flow Rate FiO2 08/04/16 08:24 94 21 08/04/16 04:01 98.7 72 21 140/84 95 08/04/16 00:23 98.7 77 20 137/88 94 08/03/16 20:17 96.0 80 20 135/82 94 08/03/16 19:08 Room Air 08/03/16 16:14 98 Nasal Cannula 2.00 08/03/16 16:00 98.3 84 18 121/78 97 08/03/16 12:00 97.2 88 18 128/77 100 08/03/16 10:30 98.5 77 14 99/55 92 Nasal Cannula 2.5 08/03/16 10:15 73 14 94/60 92 Nasal Cannula 2.5 08/03/16 10:00 77 15 105/67 97 Aerosol Mask 08/03/16 09:50 99.0 84 14 110/62 97 Nasal Cannula 3 I/O 08/03/16 08/03/16 08/03/16 08/04/16 08/04/16 08/04/16 07:00 15:00 23:00 07:00 15:00 23:00 Intake Total 120 ml 1760 ml 480 ml 360 ml Output Total 20 ml Balance 120 ml 1740 ml 480 ml 360 ml Intake Oral 120 ml 960 ml 480 ml 360 ml IV Total 100 ml Other 700 ml Output Estimated Blood Loss 20 ml # Voids 1 1 2 2 # Bowel Movements 0 0 0 Result Diagram: 08/04/16 0551 08/04/16 0551 Objective Remarks Laying in bed, NAD VSS RLE Splint c/d/i, mild swelling toes - wiggles freely +motor ehl, +sens, +nvi PT seen and evaluated by Dr. Juliana Dsouza Assessment & Plan Ortho Post Op Day #: 1 Problem List: Assessment and Plan POD#1 s/p ORIF R [place] Ankle fx Ok to d/c home today per ortho. PT to see today for gait training - NonWBing RLE. Crutches/walker. Continue splint. Keep clean and dry. PO pain meds as needed. F/U outpt with Dr. Frazier 2 weeks. Rita Foster Aug 04, 2016 08:37
[2016-08-04] MEDS ORDERED: WALKER WHEELS/F1 MIS (08:46)
[2016-08-04] MEDS: DOCUSATE SODIUM 50 MG/SENNA 8.6 MG TAB PO SCH (08:51)
[2016-08-04] MEDS: LISINOPRIL 10 MG TAB PO SCH (08:51)
[2016-08-04] MEDS: ANASTROZOLE 1 MG TAB PO SCH (08:51)
[2016-08-04] MEDS: SODIUM CHLORIDE 0.9% FLUSH 5 ML FLUSH IVF SCH (08:54)
[2016-08-04] MEDS ORDERED: MULTIVITAMINS/MINERALS THERAPEUTIC TAB PO SCH (09:00)
[2016-08-04 12:15] VITALS: BP 133/84; PULSE 84; RESP 16; TEMP 97.6; O2SAT 96
--- NOTE | 2016-08-04 12:28 | HHI.PR ---
Subjective Remarks some post op discomfort tolerating po Objective Vitals Vital Signs Date Time Temp Pulse Resp B/P Pulse Ox O2 Delivery O2 Flow Rate FiO2 08/04/16 08:24 94 21 08/04/16 08:00 93 Room Air 08/04/16 07:37 97.3 80 16 160/89 93 08/04/16 04:01 98.7 72 21 140/84 95 08/04/16 00:23 98.7 77 20 137/88 94 08/03/16 20:17 96.0 80 20 135/82 94 08/03/16 19:08 Room Air 08/03/16 16:14 98 Nasal Cannula 2.00 08/03/16 16:00 98.3 84 18 121/78 97 I/O 08/03/16 08/03/16 08/03/16 08/04/16 08/04/16 08/04/16 07:00 15:00 23:00 07:00 15:00 23:00 Intake Total 120 ml 1760 ml 480 ml 360 ml Output Total 20 ml Balance 120 ml 1740 ml 480 ml 360 ml Intake Oral 120 ml 960 ml 480 ml 360 ml IV Total 100 ml Other 700 ml Output Estimated Blood Loss 20 ml # Voids 1 1 2 2 # Bowel Movements 0 0 0 Result Diagram: 08/04/16 0551 08/04/16 0551 Imaging Last Impressions Chest X-Ray 08/03/16 0048 Signed Impressions: Service Date/Time: Wednesday, August 03, 2016 00:58 - CONCLUSION: The lungs are clear. Patricio Marquis MD Ankle X-Ray 08/03/16 0000 Signed Impressions: Service Date/Time: Wednesday, August 03, 2016 09:16 - CONCLUSION: Status post ORIF. Koffi Mcgee MD Objective Remarks awake and alert, NAD anicteric lungs clear regular rhythm abdomen soft, nontender right LE- Post op elastic dressing in place/splint in place, toes warm, wiggles freely Left :E- no edema A/P Problem List: (1) Fall ICD Code: W19.XXXA Status: Acute (2) Ankle fracture, right ICD Code: S82.891A Status: Acute (3) Leukocytosis ICD Code: D72.829 Status: Acute (4) Tobacco abuse ICD Code: Z72.0 Status: Acute Assessment and Plan A/P: 1. Fall: s/p mechanical trip and fall down stairs at home, no head trauma or LOC, +alcohol intoxication however no h/o alcohol abuse. 2. S/P ORIF Right Ankle Fx 08/03 cleared by Ortho for DC Non weightbearing right LE keep wound dry:. Splint in place seen by PT 3. Leukocytosis: WBC 11.3 w/ mild shift, afebrile. Likely secondary to recent injury. CXR w/ no acute findings, images reviewed by me. Repeat labs in am. 4. Tobacco Abuse: Pt counselled. History of Hypertension- continue home Lisinorpil Hisotry of depression. continue on Effexor OP ff up with Ortho as OP in 2 weeks FF up with PCP as OP- Dr. Steinberg in [place] Ambulate with walker/crutches Meds- prn pain jaimes Estrella Marinelli MD Aug 04, 2016 12:28
[2016-08-04] MEDS ORDERED: MORPHINE SULFATE 4 MG/ML INJ IV PUSH PRN (13:00)
[2016-08-04] MEDS: oxyCODONE/ACETAMINOPHEN 7.5 MG/325 MG TAB PO PRN ×2 (13:18→16:58)
[2016-08-04] MEDS ORDERED: MORPHINE SULFATE 4 MG/ML INJ IV PRN (14:00)
[2016-08-04 15:54] VITALS: BP 130/74; PULSE 84; RESP 16; TEMP 97.9; O2SAT 94
--- NOTE | 2016-08-07 08:54 | MP ---
cc: MILENA BETANCOURT M.D. DATE OF SURGERY: 08/03/2016 PREOPERATIVE DIAGNOSIS Right bimalleolar ankle fracture-dislocation. POSTOPERATIVE DIAGNOSES Right bimalleolar ankle fracture-dislocation. PROCEDURE Open reduction, internal fixation right bimalleolar ankle fracture-dislocation. SURGEON Dr. Milena Betancourt. LABORER GOLF [employer] TOMER Gonzales ANESTHESIA General. ESTIMATED BLOOD LOSS 50 ccs. TOURNIQUET TIME Zero minutes. COMPLICATIONS None. IMPLANTS USED Synthes. JUSTIFICATION FOR PROCEDURE The patient is a 61-year-old female who fell sustaining severe injury to the right ankle with displaced bimalleolar ankle fracture-dislocation. She presents to [facility] Emergency Room where x-rays confirmed the above-named findings. Orthopedic surgery was consulted. The patient was counseled as to risks, benefits and alternatives to the above-named proposed surgical procedure. She did wish to proceed with surgery. PROCEDURE IN DETAIL Written consent was obtained. The patient was identified by name, taken to the operating room and placed supine on the operating table. General anesthesia was administered as well as 2 grams of IV Ancef and 1 gram of IV vancomycin. The right lower extremity was prepped and draped using isopropyl alcohol, Hibiclens solution, Chloraprep solution. After time-out was performed a longitudinal incision was made over the lateral aspect of the right ankle. The fascial layer was incised and the periosteum elevated off the distal fibula. A curette was used to curette the fracture fragments and remove hematoma. Longitudinal traction was applied and open reduction was performed with fracture reduction tenaculum. A 2.7 mm lag screw was preliminary placed in a anterior to posterior direction across the fracture providing preliminary fixation. The patient has severe osteoporosis of bone. Subsequently, a Synthes distal fibula locking plate was applied to the lateral aspect of the distal fibula. A combination of both locking and nonlocking screws were used for fixation. The surgical wound was thoroughly irrigated with sterile saline solution. Deep fascial layer was closed with 3-0 Vicryl suture. Skin was closed with Dermabond. Attention was turned to the medial aspect of the right ankle. A longitudinal incision was applied and open reduction was performed and two K-wires was drilled transversely in fracture. Subsequently, two cannulated Synthes 46 mm x 4.0 mm partially threaded ___ screws were placed over the K-wires for fixation of the medial malleolus. The K-wires were removed, the fracture was in good alignment and stability. Fluoroscopic imaging confirmed hardware placement, fracture reduction. The surgical wound was thoroughly irrigated with sterile saline solution. The subcutaneous layer was closed with 3-0 Vicryl suture, skin was closed with Dermabond. Sterile dressing was applied. The patient was placed in well-padded splint. She tolerated the procedure well with no intraoperative complications noted. Tyler Fletcher, physician hotel administrative assistant certified was present during the entire procedure to include patient positioning, the procedure itself. The medical necessity of physician hotel administrative assistant was indicated in this case due to the complexity of the procedure. He assisted with appropriate manipulation of the leg and also manipulation of fracture. He assisted with achieving and maintaining fracture reduction as well as implantation of internal fixation device. MD BLAYNE Field/KAREN /9:33 AM /7:28 AM
[2016-08-08] MEDS ORDERED: LISI10TA3 PO ×2 (15:24→15:25)
== END 2016-08-04 17:45 | disposition home or self-care (01) | DRG 494 ==
LOC: NEPB 23:41 → NEDA 08-03 01:54 → N06A 08-03 03:43
PROVIDERS: ADMIT Internal Medicine; ATTEND Internal Medicine
PROC: 0QSG04Z Reposition Right Tibia with Internal Fixation Device, Open Approach (ICD-10-PCS; 2016-08-03)
PROC: 0QSJ04Z Reposition Right Fibula with Internal Fixation Device, Open Approach (ICD-10-PCS; principal; 2016-08-03 08:06)
DX: S82.841A Displaced bimalleolar fracture of right lower leg, initial encounter for closed fracture (principal); I10 Essential (primary) hypertension; Y92.009 Unspecified place in unspecified non-institutional (private) residence as the place of occurrence of the external cause; W10.8XXA Fall (on) (from) other stairs and steps, initial encounter; F41.9 Anxiety disorder, unspecified; F17.210 Nicotine dependence, cigarettes, uncomplicated; F32.9 Major depressive disorder, single episode, unspecified; D72.829 Elevated white blood cell count, unspecified; M81.0 Age-related osteoporosis without current pathological fracture
CPT/HCPCS: 71010; 73600; 73610; 76000; 80048; 80053; 81001; 85025; 85610; 85730; 94150; 94664; 96361; 96374; 96375; C1713; J0131; J0690; J1100; J1170; J1580; J2250; J2270; J2370; J2405; J3010; J3370; J7030; J7120; J7613

== ENCOUNTER 2016-09-05 10:18 | Observation (INO) | payer OTHER ==
[~2016-09-05] VITALS: Ht 149.9 cm; Wt 60.9 kg
[~2016-09-05 10:18] MED LIST changes: +HYDR-3288 PO; -TYLETAB34 PO; +WALKER WHEELS/F1 MIS
[2016-09-05 10:20] VITALS: BP 118/77; PULSE 88; RESP 20; TEMP 98; O2SAT 98
[2016-09-05] MEDS ORDERED: SODIUM CHLORIDE 0.9% FLUSH 10 ML FLUSH IVF PRN (11:00)
[2016-09-05 12:25] LABS: AUTOMATED NEUTROPHIL # 12.8 TH/MM3 (1.8-7.7); BASOPHIL % 0.3 % (0.0-2.0); EOSINOPHIL # 0.1 TH/MM3 (0-0.4); EOSINOPHIL % 0.7 % (0.0-4.0); HEMATOCRIT 37.3 % (35.0-46.0); HEMO FLAGS DIFF FINAL; LYMPH % 11.3 % (9.0-44.0); LYMPHOCYTE # 1.8 TH/MM3 (1.0-4.8); MEAN CELL VOLUME 87.1 FL (80.0-100.0); MEAN CORPUSCULAR HEMOGLOBIN 29.4 PG (27.0-34.0); MEAN CORPUSCULAR HGB CONC 33.7 % (32.0-36.0); MONO % 6.8 % (0.0-8.0); NEUT % 80.9 % (16.0-70.0); PLATELET COUNT 270 TH/MM3 (150-450); RED BLOOD COUNT 4.28 MIL/MM3 (4.00-5.30); RED CELL DISTRIBUTION WIDTH 13.2 % (11.6-17.2); WHITE BLOOD COUNT 15.8 TH/MM3 (4.0-11.0)
[2016-09-05 12:45] LABS: PROTHROMBIN TIME - PATIENT 10.8 SEC (9.8-11.6)
[2016-09-05 13:00] LABS: ANION GAP 7 MEQ/L (5-15); AST (GOT) 10 U/L (15-37); BICARBONATE 27.3 MEQ/L (21.0-32.0); BLOOD UREA NITROGEN 17 MG/DL (7-18); CHLORIDE 107 MEQ/L (98-107); GLOMERULAR FILTRATION RATE 84 ML/MIN (>89); POTASSIUM 3.9 MEQ/L (3.5-5.1); SODIUM (NA) 141 MEQ/L (136-145)
[2016-09-05 13:03] LABS: ALKALINE PHOSPHATASE 73 U/L (45-117); ALT (GPT) 25 U/L (10-53); TOTAL BILIRUBIN ADULT 0.4 MG/DL (0.2-1.0)
--- NOTE | 2016-09-05 13:12 | PD ---
HPI Chief Complaint: GI Complaint Time Seen by Provider: 13:11 Travel History International Travel<30 days: No Contact w/Intl Traveler<30days: No Traveled to known affect area: No History of Present Illness HPI 61-year-old female came to the emergency room with history of lower GI bleed. It started last night and since then she has had at least 4 bloody bowel movements. Her is here with her who said that he noticed. The toilet with and all blood. Patient says she has been lightheaded and sweaty. No history of vomiting that she was nauseous at first. She has not had colonoscopy. She has had small quantity of blood in her stool every now and then but this amount is new. She is complaining of some generalized abdominal cramping just before she has to go to the bathroom. She is not on any blood thinners. [facility] Past Medical History Narrative Medical List of her past medical, surgical, social and family history was reviewed from the nursing note. Blood Disorders: No Anxiety: Yes Heart Rhythm Problems: No Cancer: Yes (L BREAST ) Cardiac Catheterization: No Cardiovascular Problems: Yes (htn) High Cholesterol: No Congestive Heart Failure: No Diabetes: No Diminished Hearing: No Endocrine: No Hepatitis: No Hiatal Hernia: No Hypertension: Yes Immune Disorder: No Psychiatric: No Reproductive: No Respiratory: No Immunizations Current: No Myocardial Infarction: No Thyroid Disease: No Menopausal: Yes : 2 Para: 2 Ovarian Cysts: Yes Dilation and Curettage (D&C): Yes Tubal Ligation: Yes Past Surgical History Coronary Artery Bypass Graft: No Gynecologic Surgery: Yes (TUBAL LIGATION) Pacemaker: No Social History Alcohol Use: Yes (BEER/WINE WEEKLY) Tobacco Use: Yes Substance Use: No Allergies-Medications (Allergen,Severity, Reaction): Coded Allergies: No Known Allergies (Verified , 09/05/16) Comments No known drug allergies. Reported Meds & Prescriptions Reported Meds & Active Scripts Active Lisinopril 10 Mg Tab 10 Mg PO BID Walker with Front Wheels (Device) 1 Mis Mis 1 Ea .ROUTE DIRECTED [place] (Hydrocodone-Acetaminophen) 7.5-325 mg Tab 1-2 Tab PO Q6H PRN Reported Flexeril (Cyclobenzaprine HCl) 10 Mg Tab 10 Mg PO TID PRN Anastrozole 1 Mg Tab 1 Mg PO DAILY Effexor (Venlafaxine HCl) 75 Mg Tab 75 Mg PO DAILY PRN Omeprazole 20 Mg Tab 20 Mg PO BID PRN Narrative Medication List of her home medications reviewed from the nursing note. Review of Systems Except as stated in HPI: all other systems reviewed are Neg Physical Exam Narrative GENERAL: Awake, alert, anxious, mild distress SKIN: Focused skin assessment warm/dry. Pale HEAD: Atraumatic. Normocephalic. EYES: Pupils equal and round. No scleral icterus. No injection or drainage. ENT: No nasal bleeding or discharge. Dry mucous membrane NECK: Trachea midline. No JVD. CARDIOVASCULAR: Regular rate and rhythm. No murmur appreciated. RESPIRATORY: No accessory muscle use. Clear to auscultation. Breath sounds equal bilaterally. GASTROINTESTINAL: Abdomen soft, non-tender, nondistended. Hepatic and splenic margins not palpable. MUSCULOSKELETAL: No obvious deformities. No clubbing. No cyanosis. No edema. NEUROLOGICAL: Awake and alert. No obvious cranial nerve deficits. Motor grossly within normal limits. Normal speech. PSYCHIATRIC: Appropriate mood and affect; insight and judgment normal. Data Data Last Documented VS Orders Complete Blood Count With Diff (09/05/16 10:53) Comprehensive Metabolic Panel (09/05/16 10:53) Lipase (09/05/16 10:53) Prothrombin Time / Inr (Pt) (09/05/16 10:53) Act Partial Throm Time (Ptt) (09/05/16 10:53) Urinalysis - C+S If Indicated (09/05/16 10:53) Type And Screen (09/05/16 10:53) Sodium Chloride 0.9% Flush (Ns Flush) (09/05/16 11:00) Sodium Chlor 0.9% 1000 Ml Inj (Ns 1000 M (09/05/16 13:30) Admit Order (Ed Use Only) (09/05/16 14:50) Labs MDM Medical Decision Making Medical Screen Exam Complete: Yes Emergency Medical Condition: Yes Medical Record Reviewed: Yes Interpretation(s) Twelve-lead EKG was reviewed by me. Normal sinus rhythm, normal axis, nonspecific ST-T wave changes. Heart rate of 74 bpm. Differential Diagnosis Diverticular bleed, internal hemorrhoid, rectal bleeding Narrative Course 2:37 PM patient was given 1 L of IV fluid bolus. Blood test results are back. I discussed the case with the GI specialist Dr. Alvarez and he will consult on her. Awaiting for the hospitalist to call back for admission. Procedures EKG Prior to Arrival: No HemaPrompt Point of Care Internal Pos. & Neg. Controls: Passed Fecal Specimen Occult Blood: Positive Physician Communication Physician Communication Dr. Alvarez Diagnosis Primary Impression: Rectal bleeding Admitting Information Admitting Physician Requests: Admit Sonali Ramos MD Sep 05, 2016 13:12 Neutrophils (%) (Auto) 80.9 % Lymphocytes (%) (Auto) 11.3 % Monocytes (%) (Auto) 6.8 % Eosinophils (%) (Auto) 0.7 % Basophils (%) (Auto) 0.3 % Neutrophils # (Auto) 12.8 TH/MM3 Lymphocytes # (Auto) 1.8 TH/MM3 Monocytes # (Auto) 1.1 TH/MM3 Eosinophils # (Auto) 0.1 TH/MM3 Basophils # (Auto) 0.0 TH/MM3 CBC Comment DIFF FINAL Differential Comment Prothrombin Time 10.8 SEC Prothromb Time International 1.0 RATIO Ratio Activated Partial 25.0 SEC Thromboplast Time Sodium Level 141 MEQ/L Potassium Level 3.9 MEQ/L Chloride Level 107 MEQ/L Carbon Dioxide Level 27.3 MEQ/L Anion Gap 7 MEQ/L Blood Urea Nitrogen 17 MG/DL Creatinine 0.71 MG/DL Estimat Glomerular Filtration 84 ML/MIN Rate Random Glucose 82 MG/DL Calcium Level 9.3 MG/DL Total Bilirubin 0.4 MG/DL Aspartate Amino Transf 10 U/L (AST/SGOT) Alanine Aminotransferase 25 U/L (ALT/SGPT) Alkaline Phosphatase 73 U/L Total Protein 7.0 GM/DL Albumin 3.8 GM/DL Lipase 123 U/L Blood Type A POSITIVE Antibody Screen NEGATIVE MDM Medical Decision Making Medical Screen Exam Complete: Yes Emergency Medical Condition: Yes Medical Record Reviewed: Yes Interpretation(s) Twelve-lead EKG was reviewed by me. Normal sinus rhythm, normal axis, nonspecific ST-T wave changes. Heart rate of 74 bpm. Differential Diagnosis Diverticular bleed, internal hemorrhoid, rectal bleeding Narrative Course 2:37 PM patient was given 1 L of IV fluid bolus. Blood test results are back. I discussed the case with the GI specialist Dr. Alvarez and he will consult on her. Awaiting for the hospitalist to call back for admission. Procedures EKG Prior to Arrival: No HemaPrompt Point of Care Internal Pos. & Neg. Controls: Passed Fecal Specimen Occult Blood: Positive Physician Communication Physician Communication Dr. Alvarez Diagnosis Primary Impression: Rectal bleeding Admitting Information Admitting Physician Requests: Admit Sonali Ramos MD Sep 05, 2016 13:12
[2016-09-05 13:15] VITALS: BP 132/77; PULSE 74; RESP 14; TEMP 97.9; O2SAT 98
[2016-09-05] MEDS ORDERED: SODIUM CHLOR 0.9% 1000 ML INJ 1,000 ML IV ONE (13:30)
[2016-09-05] MEDS ORDERED: NALOXONE HCL 0.4 MG/ML AMP IV PRN (15:00)
[2016-09-05] MEDS ORDERED: SODIUM CHLORIDE 0.9% FLUSH 10 ML FLUSH IV FLUSH PRN (15:00)
[2016-09-05] MEDS ORDERED: ONDANSETRON HCL 4 MG/2 ML VIAL IVP PRN (15:00)
[2016-09-05] MEDS ORDERED: ACETAMINOPHEN 325 MG TAB PO PRN ×2 (15:00)
[2016-09-05 15:21] VITALS: BP 153/82
--- NOTE | 2016-09-05 15:33 | HHI.HP ---
[facility] Service [facility] Primary Care Physician RUBEN Castro Admission Diagnosis rectal bleed Diagnoses: (1) Rectal bleeding (2) Leukocytosis (3) Hypertension (4) Breast cancer in female Chief Complaint: Rectal bleeding Travel History International Travel<30 Days: No Contact w/Intl Traveler <30 Da: No Traveled to Known Affected Are: No History of Present Illness 61 year-old female with a history of hypertension, recent open reduction internal fixation right ankle him to the ED for evaluation of an acute onset of multiple episodes of bright red blood per rectum since this morning. She report one episode of diarrhea yesterday follow this morning by rectal bleeding, however over the past several days she's had constipation occurring to narcotics prescribed after her surgery. She denies any hemorrhoids or prior GI bleed. She also complained of abdominal pain associated with those episodes. Why she has no hematuria and hemoptysis or hematemesis. Review of Systems Other 12 systems reviewed and are negative except for the one mentioned in history of present illness Past Family Social History Past Medical History Anxiety, HTN, Breast CA and Tobacco Abuse Past Surgical History ORIF Right Ankle Fx 08/03, Tubal Ligation, Mastectomy, Breast Augmentation Allergies: Coded Allergies: No Known Allergies (Verified , 09/05/16) Family History No h/o DM or CAD Social History Drinks weekly. Smokes 1ppd. Negative for drugs. Physical Exam Vital Signs Vital Signs Date Time Temp Pulse Resp B/P Pulse Ox O2 Delivery O2 Flow Rate FiO2 09/05/16 15:21 75 14 153/82 99 09/05/16 13:15 97.9 74 14 132/77 98 Room Air 09/05/16 13:15 14 09/05/16 10:20 98.0 88 20 118/77 98 Room Air Physical Exam GENERAL: This is a well-nourished, well-developed patient, in no apparent distress. SKIN: No rashes, ecchymoses or lesions. Cool and dry. HEAD: Atraumatic. Normocephalic. No temporal or scalp tenderness. EYES: Pupils equal round and reactive. Extraocular motions intact. No scleral icterus. No injection or drainage. ENT: Nose without bleeding, purulent drainage or septal hematoma. Throat without erythema, tonsillar hypertrophy or exudate. Uvula midline. Airway patent. NECK: Trachea midline. No JVD or lymphadenopathy. Supple, nontender, no meningeal signs. CARDIOVASCULAR: Regular rate and rhythm without murmurs, gallops, or rubs. RESPIRATORY: Clear to auscultation. Breath sounds equal bilaterally. No wheezes , rales, or rhonchi. GASTROINTESTINAL: Abdomen soft, non-tender, nondistended. No hepato-splenomegaly , or palpable masses. No guarding. MUSCULOSKELETAL: Extremities without clubbing, cyanosis, or edema. No joint tenderness, effusion, or edema noted. No calf tenderness. Negative Homans sign bilaterally. NEUROLOGICAL: Awake and alert. Cranial nerves II through XII intact. Motor and sensory grossly within normal limits. Five out of 5 muscle strength in all muscle groups. Normal speech. Laboratory Laboratory Tests Test 09/05/16 12:07 White Blood Count 15.8 Red Blood Count 4.28 Hemoglobin 12.6 Hematocrit 37.3 Mean Corpuscular Volume 87.1 Mean Corpuscular Hemoglobin 29.4 Mean Corpuscular Hemoglobin 33.7 Concent Red Cell Distribution Width 13.2 Platelet Count 270 Mean Platelet Volume 7.4 Neutrophils (%) (Auto) 80.9 Lymphocytes (%) (Auto) 11.3 Monocytes (%) (Auto) 6.8 Eosinophils (%) (Auto) 0.7 Basophils (%) (Auto) 0.3 Neutrophils # (Auto) 12.8 Lymphocytes # (Auto) 1.8 Monocytes # (Auto) 1.1 Eosinophils # (Auto) 0.1 Basophils # (Auto) 0.0 CBC Comment DIFF FINAL Differential Comment Prothrombin Time 10.8 Prothromb Time International 1.0 Ratio Activated Partial 25.0 Thromboplast Time Sodium Level 141 Potassium Level 3.9 Chloride Level 107 Carbon Dioxide Level 27.3 Anion Gap 7 Blood Urea Nitrogen 17 Creatinine 0.71 Estimat Glomerular Filtration 84 Rate Random Glucose 82 Calcium Level 9.3 Total Bilirubin 0.4 Aspartate Amino Transf 10 (AST/SGOT) Alanine Aminotransferase 25 (ALT/SGPT) Alkaline Phosphatase 73 Total Protein 7.0 Albumin 3.8 Lipase 123 Blood Type A POSITIVE Antibody Screen NEGATIVE Result Diagram: 09/05/16 1207 09/05/16 1207 Assessment and Plan Problem List: (1) Rectal bleeding ICD Code: K62.5 Status: Acute (2) Leukocytosis ICD Code: D72.829 Status: Acute (3) Hypertension ICD Code: I10 Status: Acute (4) Breast cancer in female ICD Code: C50.919 Status: Acute Assessment and Plan 61 year-old female with Rectal bleeding: H&H stable, consult gastroenterology for possible evaluation for colonoscopy +/-endoscopy. Serial H&H monitoring and start Protonix IV. Nothing by mouth after midnight Leukocytosis: Stress reactive, maybe secondary to GI bleed, continue to monitor. Check UA and chest x-ray History of breast cancer: Resume Arimidex Hypertension: Resume lisinopril Recent ORIF Right Ankle Fx 08/03: Pain medication accordingly, PT consult to treat and eval Other chronic medical conditions: Resume outpatient medications DVT prophylaxis: Chemical anti-prophylactic contraindicated,B- SCDs Code Status Full code Discussed Condition With , , ED physician Crow Morin MD Sep 05, 2016 15:33
[2016-09-05] MEDS ORDERED: RESP: ALBUTEROL 2.5 MG/IPRATROPIUM 0.5 MG NEB (PRN) NEB (15:45)
[2016-09-05] MEDS ORDERED: ENALAPRILAT 1.25 MG/ML VIAL IV PUSH PRN (15:45)
[2016-09-05] MEDS ORDERED: VENLAFAXINE HCL XR 75 MG CAP PO PRN (16:00)
[2016-09-05 16:15] VITALS: BP 149/85; PULSE 90; RESP 16; TEMP 97.3; O2SAT 99
[2016-09-05] MEDS: ACETAMINOPHEN/HYDROcodone 325 MG/7.5 MG TAB PO PRN ×2 (16:57→22:59)
[2016-09-05] MEDS ORDERED: PEG (High)/E-LYTE SOLN 4000 ML BTL PO ONE (19:45)
[2016-09-05 20:00] VITALS: BP 116/78; PULSE 76; RESP 17; TEMP 98.1; O2SAT 98
[2016-09-05] MEDS: PANTOPRAZOLE SODIUM 40 MG VIAL IV PUSH SCH (20:37)
[2016-09-05] MEDS: LISINOPRIL 10 MG TAB PO SCH (20:37)
[2016-09-05] MEDS: SODIUM CHLORIDE 0.9% FLUSH 10 ML FLUSH IV FLUSH SCH (20:38)
[2016-09-05] MEDS ORDERED: TEMAZEPAM 15 MG CAP PO PRN (21:00)
--- NOTE | 2016-09-05 22:43 | EKG ---
Date Performed: 09/05/2016 Time Performed: 13:17:37 PTAGE: 61 years EKG: Sinus rhythm NORMAL ECG PREVIOUS TRACING : 06/02/2016 10.30 No significant change from previous tracing noted. DOCTOR: Karthik Rapp Interpretating Date/Time 09/05/2016 22:41:40
--- NOTE | 2016-09-05 23:32 | MB ---
cc: JOSSELINE ARANGO MD DATE OF CONSULTATION 09/05/16 1955 REASON FOR REFERRAL Rectal bleeding HISTORY OF PRESENT ILLNESS This is a pleasant 61-year-old lady who has few medical problems including breast cancer status post lumpectomy with radiation. She also has right ankle surgery, hypertension, came because of few episodes of bright red blood per rectum since this morning. The patient stated that she had one episode of diarrhea yesterday, but then this was followed by rectal bleeding at the end of the day. She had several days of constipation because of medication prescribed for her surgery. She denied any other problem. She never had a colonoscopy. No abdominal pain, no weight changes. No nausea or vomiting. No hematemesis. PAST MEDICAL HISTORY Significant as above 1. Breast cancer, 2. Hypertension 3. Surgical repair of her ankle ALLERGIES NO KNOWN DRUG ALLERGIES. FAMILY HISTORY Noncontributory. SOCIAL HISTORY She drinks a little bit of alcohol. She smokes one pack a day. No drugs. REVIEW OF SYSTEMS All 12-point negative except HPI. PHYSICAL EXAMINATION GENERAL: Alert, oriented in no acute distress. VITAL SIGNS: Stable. HEENT: Pupils round, reactive to light. NECK: Supple. CHEST: Clear. CARDIAC: Regular rate and rhythm. ABDOMEN: Soft, nondistended. Positive bowel sounds. No hepatosplenomegaly. EXTREMITIES: No edema, clubbing or cyanosis. She has a cast on her leg. NEUROLOGIC: Neurologically intact and good muscle strength. next PSYCHIATRIC: Psychologically appropriate. LABORATORY DATA Normal liver function tests. Normal Chem-7, INR 1.0. White blood cells 15.8. CBC normal. ASSESSMENT/PLAN A 61-year-old lady who has rectal bleeding post constipation, could be ischemic bowel, could be hemorrhoids, could be malignancy or AVM. Her hemoglobin is stable. She is hemodynamically stable. She denied any upper GI symptom. I recommended to her doing a colonoscopy and we will plan on doing that tomorrow. I discussed with the procedure and complication. She is agreeable to have it done. We will prep her and do the procedure tomorrow. Josseline Arango MD / /7:50 PM 11:21 PM
[2016-09-06] VITALS: BP 124/73; PULSE 75; RESP 17; TEMP 97; O2SAT 99
[2016-09-06 04:00] VITALS: BP 112/67; PULSE 78; RESP 18; TEMP 98.6; O2SAT 99
[2016-09-06] MEDS: ACETAMINOPHEN/HYDROcodone 325 MG/7.5 MG TAB PO PRN ×2 (04:48→11:12)
[2016-09-06 07:08] LABS: AUTOMATED NEUTROPHIL # 10.1 TH/MM3 (1.8-7.7); BASOPHIL % 0.2 % (0.0-2.0); EOSINOPHIL # 0.2 TH/MM3 (0-0.4); EOSINOPHIL % 1.4 % (0.0-4.0); HEMATOCRIT 33.9 % (35.0-46.0); HEMO FLAGS DIFF FINAL; LYMPH % 12.9 % (9.0-44.0); LYMPHOCYTE # 1.7 TH/MM3 (1.0-4.8); MEAN CELL VOLUME 87.4 FL (80.0-100.0); MEAN CORPUSCULAR HEMOGLOBIN 28.8 PG (27.0-34.0); MONO % 7.9 % (0.0-8.0); NEUT % 77.6 % (16.0-70.0); PLATELET COUNT 211 TH/MM3 (150-450); RED BLOOD COUNT 3.88 MIL/MM3 (4.00-5.30); RED CELL DISTRIBUTION WIDTH 13.2 % (11.6-17.2)
[2016-09-06 07:35] LABS: ALT (GPT) 18 U/L (10-53); ANION GAP 8 MEQ/L (5-15); AST (GOT) 7 U/L (15-37); BICARBONATE 26.1 MEQ/L (21.0-32.0); BLOOD UREA NITROGEN 7 MG/DL (7-18); CHLORIDE 108 MEQ/L (98-107); GLOMERULAR FILTRATION RATE 94 ML/MIN (>89); POTASSIUM 3.7 MEQ/L (3.5-5.1); SODIUM (NA) 142 MEQ/L (136-145)
[2016-09-06 07:43] LABS: ALKALINE PHOSPHATASE 62 U/L (45-117); TOTAL BILIRUBIN ADULT 0.6 MG/DL (0.2-1.0)
[2016-09-06 08:34] VITALS: BP 112/67; PULSE 78; RESP 18; TEMP 98.6; O2SAT 99
[2016-09-06] MEDS ORDERED: ANASTROZOLE 1 MG TAB PO SCH (09:00)
[2016-09-06] MEDS ORDERED: PROPOFOL 200 MG/20 ML AMP IV ONE (09:00)
--- NOTE | 2016-09-06 09:27 | GIPROC ---
[facility] [address] [facility]. [facility] [place], [id number] COLONOSCOPY PROCEDURE REPORT EXAM DATE: 09/06/2016 PATIENT NAME: Summer Negrete MR #: [id number] BIRTHDATE: 1955 ENDOSCOPIST: Josseline Arango MD ORDER #: [id number] VE TEACHER: Siddhartha Fernandez STATUS: inpatient INDICATIONS: The patient is a 61 yr old female here for a colonoscopy due to anal bleeding PROCEDURE PERFORMED: Colonoscopy with biopsy Colonoscopy with polypectomy MEDICATIONS: None and Per Anesthesia. PREP QUALITY: good ESTIMATED BLOOD LOSS: None CONSENT: The patient understands the risks and benefits of the procedure and understands that these risks include, but are not limited to: sedation, allergic reaction, infection, perforation and/or bleeding. Alternative means of evaluation and treatment include, among others: physical exam, x-rays, and/or surgical intervention. The patient elects to proceed with this endoscopic procedure. medical equipment was checked for proper function. Hand hygiene and appropriate measures for infection prevention was taken. After the risks, benefits and alternatives of the procedure were thoroughly explained, Informed consent was verified, confirmed and timeout was successfully executed by the treatment team. A digital exam revealed no abnormalities of the rectum The New [id number] (Std Gastro) and [id number] endoscope was introduced through the anus and advanced to the cecum, which was identified by both the appendix and ileocecal valve. The instrument was then slowly withdrawn as the colon was fully examined. COLON FINDINGS: 2 polyps 1 cm each in the sigmoid, removed by hot snare. Moderate diverticulosis was noted throughout the entire examined colon. Ulcerated mucosa c/w ischemia in the descending colon Bx done. Retroflexed views revealed no abnormalities The scope was then completely withdrawn from the patient and the procedure terminated. ADVERSE EVENTS: There were no complications. IMPRESSIONS: 1. 2 polyps 1 cm each in the sigmoid, removed by hot snare 2. Moderate diverticulosis was noted throughout the entire examined colon 3. Ulcerated mucosa c/w ischemia in the descending colon Bx done 4. Retroflexed views revealed no abnormalities 5. Revealed no abnormalities of the rectum RECOMMENDATIONS: 1. Await biopsy results. Biopsy results will not be ready for 7-10 days. If you don't hear from us in two weeks, call our office for results. 2. High fiber diet 3. Avoide constipation 4. Yearly hemoccult RECALL: Return 2 months Colonoscopy Josseline Arango MD eSigned: Josseline Arango MD 09/06/2016 9:26 AM cc: PATIENT NAME: Summer Negrete MR#: [id number]
--- NOTE | 2016-09-06 09:35 | HHI.GIFU ---
Subjective Remarks feels ok, still having abdominal pain. no active bleed Objective Vitals I&O Vital Signs Date Time Temp Pulse Resp B/P Pulse Ox O2 Delivery O2 Flow Rate FiO2 09/06/16 08:34 98.6 78 18 112/67 99 09/06/16 05:56 16 09/06/16 04:00 98.6 78 18 112/67 99 09/06/16 00:00 97.0 75 17 124/73 99 09/05/16 20:00 98.1 76 17 116/78 98 09/05/16 16:15 97.3 90 16 149/85 99 09/05/16 15:21 75 14 153/82 99 09/05/16 13:15 97.9 74 14 132/77 98 Room Air 09/05/16 13:15 14 09/05/16 10:20 98.0 88 20 118/77 98 Room Air I/O 09/05/16 09/05/16 09/05/16 09/06/16 09/06/16 09/06/16 07:00 15:00 23:00 07:00 15:00 23:00 Intake Total 900 ml Balance 900 ml Intake Oral 900 ml # Voids 3 3 # Bowel Movements 4 3 Laboratory Laboratory Tests Test 09/05/16 09/06/16 12:07 06:38 White Blood Count 15.8 13.0 Red Blood Count 4.28 3.88 Hemoglobin 12.6 11.2 Hematocrit 37.3 33.9 Mean Corpuscular Volume 87.1 87.4 Mean Corpuscular Hemoglobin 29.4 28.8 Mean Corpuscular Hemoglobin 33.7 33.0 Concent Red Cell Distribution Width 13.2 13.2 Platelet Count 270 211 Mean Platelet Volume 7.4 7.3 Neutrophils (%) (Auto) 80.9 77.6 Lymphocytes (%) (Auto) 11.3 12.9 Monocytes (%) (Auto) 6.8 7.9 Eosinophils (%) (Auto) 0.7 1.4 Basophils (%) (Auto) 0.3 0.2 Neutrophils # (Auto) 12.8 10.1 Lymphocytes # (Auto) 1.8 1.7 Monocytes # (Auto) 1.1 1.0 Eosinophils # (Auto) 0.1 0.2 Basophils # (Auto) 0.0 0.0 CBC Comment DIFF FINAL DIFF FINAL Differential Comment Prothrombin Time 10.8 Prothromb Time International 1.0 Ratio Activated Partial 25.0 Thromboplast Time Sodium Level 141 142 Potassium Level 3.9 3.7 Chloride Level 107 108 Carbon Dioxide Level 27.3 26.1 Anion Gap 7 8 Blood Urea Nitrogen 17 7 Creatinine 0.71 0.64 Estimat Glomerular Filtration 84 94 Rate Random Glucose 82 85 Calcium Level 9.3 8.7 Total Bilirubin 0.4 0.6 Aspartate Amino Transf 10 7 (AST/SGOT) Alanine Aminotransferase 25 18 (ALT/SGPT) Alkaline Phosphatase 73 62 Total Protein 7.0 6.0 Albumin 3.8 3.1 Lipase 123 Blood Type A POSITIVE Antibody Screen NEGATIVE Physical Exam HEENT: Pupils round and reactive to light; normocephalic; atraumatic; no jaundice. Throat is clear. NECK: Neck is supple, no JVD, no lymphadenopathy. CHEST: Chest is clear to auscultation and percussion. CARDIAC: Regular rate and rhythm with no murmur gallop or rubs. ABDOMEN: Soft, nondistended, tender left colon; no hepatosplenomegaly; bowel sounds are present in all four quadrants. EXTREMITIES: No clubbing, cyanosis, or edema. SKIN: Normal; no rash; no jaundice. TELEMETRY TECH: No focal deficits; alert and oriented times three. Assessment and Plan Plan 09/06/16 doing better, less abdominal pain, colonoscopy showed ischemic colitis in the descending Bx , also 2 polyps in the sigmoid removed by snare, diverticulosis recommendation clear liquid advance as tolerated avoid constipation colonoscopy in 2 months Josseline Arango MD Sep 06, 2016 09:35
[2016-09-06 09:50] VITALS: BP 114/81; PULSE 70; RESP 16; TEMP 96.4; O2SAT 100
[2016-09-06] MEDS: PANTOPRAZOLE SODIUM 40 MG VIAL IV PUSH SCH (10:16)
[2016-09-06] MEDS: LISINOPRIL 10 MG TAB PO SCH (10:16)
[2016-09-06] MEDS: SODIUM CHLORIDE 0.9% FLUSH 10 ML FLUSH IV FLUSH SCH (10:21)
[2016-09-06 12:00] VITALS: BP 113/68; PULSE 82; RESP 16; TEMP 96; O2SAT 98
[2016-09-06 12:42] LABS: BLOOD, URINE NEG (NEG); COMMENT (UR) CULT NOT INDICATED; CULTURE IF INDICATED CULT NOT INDICATED; GLUCOSE,URINE NEG (NEG); KETONE, URINE NEG (NEG); NITRITE,URINE NEG (NEG); PH, URINE 5.5 (5.0-8.5); RENAL EPITHELIAL CELLS <1 /hpf; URINE COLOR LIGHT-YELLOW (YELLW/STRAW)
--- NOTE | 2016-09-06 13:02 | HHI.PR ---
Subjective Remarks Follow-up rectal bleeding 09/06/16-patient seen and examined, status post colonoscopy. Since admission she has no more rectal bleeding. Minimal abdominal pain. Objective Vitals Vital Signs Date Time Temp Pulse Resp B/P Pulse Ox O2 Delivery O2 Flow Rate FiO2 09/06/16 09:46 68 16 114/68 98 09/06/16 09:36 67 16 96/63 97 09/06/16 09:26 97.8 64 16 98/53 97 09/06/16 08:34 98.6 78 18 112/67 99 09/06/16 05:56 16 09/06/16 04:00 98.6 78 18 112/67 99 09/06/16 00:00 97.0 75 17 124/73 99 09/05/16 20:00 98.1 76 17 116/78 98 09/05/16 16:15 97.3 90 16 149/85 99 09/05/16 15:21 75 14 153/82 99 09/05/16 13:15 97.9 74 14 132/77 98 Room Air 09/05/16 13:15 14 I/O 09/05/16 09/05/16 09/05/16 09/06/16 09/06/16 09/06/16 07:00 15:00 23:00 07:00 15:00 23:00 Intake Total 900 ml 100 ml Balance 900 ml 100 ml Intake Oral 900 ml Other 100 ml # Voids 3 3 # Bowel Movements 4 3 Result Diagram: 09/06/16 0638 09/06/16 0638 Objective Remarks GENERAL: NAD SKIN: Warm and dry. HEAD: Normocephalic. EYES: No scleral icterus. No injection or drainage. NECK: Supple, trachea midline. No JVD or lymphadenopathy. CARDIOVASCULAR: Regular rate and rhythm without murmurs, gallops, or rubs. RESPIRATORY: Breath sounds equal bilaterally. No accessory muscle use. GASTROINTESTINAL: Abdomen soft, non-tender, nondistended. MUSCULOSKELETAL: No cyanosis, or edema. BACK: Nontender without obvious deformity. No CVA tenderness. Procedures Colonoscopy showed ischemic colitis, diverticulosis. 2 polyps removed and biopsied A/P Problem List: (1) Rectal bleeding ICD Code: K62.5 Status: Resolved (2) Leukocytosis ICD Code: D72.829 Status: Acute (3) Hypertension ICD Code: I10 Status: Chronic (4) Breast cancer in female ICD Code: C50.919 Status: Chronic Assessment and Plan 61 year-old female with Rectal bleeding: H&H stable and rectal bleeding resolved, patient is status post colonoscopy which showed ischemic colitis in descending, diverticulosis, 2 polyps removed. Appreciate input from gastroenterology. Patient to continue with full liquid 1 more day. Advised to avoid constipation. Leukocytosis: Stress reactive, maybe secondary to GI bleed, improving continue to monitor. UA negative History of breast cancer: Continue Arimidex Hypertension: Continue lisinopril Recent ORIF Right Ankle Fx 08/03: Pain medication accordingly, PT consult to treat and eval Other chronic medical conditions: Continue outpatient medications DVT prophylaxis: Chemical anti-prophylactic contraindicated,B- SCDs Discharge Planning Discharge patient to home Condition on discharge: Improved Full liquid Diet and advance diet as tolerated Ad Kika activity Rx written:none Follow-up with primary care physician in 1week Follow-up gastroenterology when necessary Crow Morin MD Sep 06, 2016 13:02
== END 2016-09-06 15:55 | disposition home or self-care (01) ==
LOC: NEPE 10:18 → NEDA 14:51 → INTOOBSV 14:51 → HOCA 16:51
PROVIDERS: ADMIT Hospitalist; ATTEND Hospitalist
DX: D12.5 Benign neoplasm of sigmoid colon (principal); K63.5 Polyp of colon; K52.9 Noninfective gastroenteritis and colitis, unspecified; K57.30 Diverticulosis of large intestine without perforation or abscess without bleeding; I10 Essential (primary) hypertension; D72.829 Elevated white blood cell count, unspecified; F41.9 Anxiety disorder, unspecified; Z87.81 Personal history of (healed) traumatic fracture; F17.200 Nicotine dependence, unspecified, uncomplicated; C50.919 Malignant neoplasm of unspecified site of unspecified female breast; Z79.811 Long term (current) use of aromatase inhibitors; Z90.10 Acquired absence of unspecified breast and nipple
CPT/HCPCS: 00810; 45385; 80053; 81001; 83690; 85025; 85610; 85730; 86850; 86900; 86901; 88305; 93005; 96360; 97162; 99285; C9113; G0378; G8987; G8988; J7030

== ENCOUNTER → 2016-09-10 | Outpatient (CLI) | payer OTHER ==
[~2016-09-10] MED LIST changes: -ACET325T PO; -HYDR50CA PO
== END ==
LOC: HORT 13:06
PROVIDERS: ATTEND Orthopaedic Surgery Sports Medicine
DX: S82.841D Displaced bimalleolar fracture of right lower leg, subsequent encounter for closed fracture with routine healing (principal); Z47.89 Encounter for other orthopedic aftercare; X58.XXXD Exposure to other specified factors, subsequent encounter
CPT/HCPCS: L2114

== ENCOUNTER 2017-06-16 08:16 | Emergency (ER) | payer OTHER ==
[~2017-06-16] VITALS: Ht 149.9 cm; Wt 59.0 kg
[~2017-06-16 08:16] MED LIST changes: +AMLO5TAB2 PO; +COLC1TAB15 PO; +CYCL10TA PO; -CYCL1TAB29 PO; -HYDR-3288 PO; -OMEP20TA PO; +OMEP40CA2 PO
[2017-06-16 08:19] VITALS: BP 151/72; PULSE 102; RESP 18; TEMP 100.5; O2SAT 97
--- NOTE | 2017-06-16 08:41 | PD ---
HPI Chief Complaint: Cold / Flu Symptoms Time Seen by Provider: 08:32 Travel History International Travel<30 days: No Contact w/Intl Traveler<30days: No Traveled to known affect area: No History of Present Illness HPI 62-year-old female presents the emergency department with sudden onset of flulike symptoms including headache, sore throat, cough, and fever and chills. She also has myalgias. Patient has some nausea but no vomiting. No diarrhea. She denies wheezing or shortness of breath. The patient took some [place] at 4 AM this morning. The patient has no known drug allergies. PFSH Past Medical History Arthritis: Yes Blood Disorders: No Anxiety: Yes Heart Rhythm Problems: No Cancer: Yes (breast 2016) Cardiac Catheterization: No Cardiovascular Problems: Yes (htn) High Cholesterol: No Congestive Heart Failure: No Diabetes: No Diminished Hearing: No Endocrine: No Genitourinary: No Hepatitis: No Hiatal Hernia: No Hypertension: Yes Immune Disorder: No Musculoskeletal: Yes Neurologic: No Psychiatric: No Reproductive: No Respiratory: No Immunizations Current: No Myocardial Infarction: No Thyroid Disease: No ?: Not Menopausal: Yes : 2 Para: 2 Ovarian Cysts: Yes Dilation and Curettage (D&C): Yes Tubal Ligation: Yes Past Surgical History Coronary Artery Bypass Graft: No Gynecologic Surgery: Yes (TUBAL LIGATION) Pacemaker: No Social History Alcohol Use: Yes (rarely ) Tobacco Use: No Substance Use: No Allergies-Medications (Allergen,Severity, Reaction): Coded Allergies: No Known Allergies (Verified Adverse Reaction, Unknown, 06/16/17) Reported Meds & Prescriptions Reported Meds & Active Scripts Active Zofran (Ondansetron HCl) 4 Mg Tab 4 Mg PO Q6HR PRN Tamiflu (Oseltamivir Phosphate) 75 Mg Cap 75 Mg PO BID 5 Days Amlodipine (Amlodipine Besylate) 5 Mg Tab 5 Mg PO DAILY Flexeril (Cyclobenzaprine HCl) 10 Mg Tab 10 Mg PO TID PRN Lisinopril 10 Mg Tab 10 Mg PO BID Colchicine 0.6 Mg Tab 0.6 Mg PO DAILY For gout flare take 1.2 mg at 1st sign of flare. After 1 hr take another dose of 0.6mg. (max 1.8mg in 1 hr) Omeprazole 40 Mg Cap 40 Mg PO DAILY Reported Anastrozole 1 Mg Tab 1 Mg PO DAILY Effexor (Venlafaxine HCl) 75 Mg Tab 75 Mg PO DAILY PRN Review of Systems Except as stated in HPI: all other systems reviewed are Neg General / Constitutional: Positive: Fever, Chills Eyes: No: Visual changes HENT: Positive: Headaches, Sore Throat, Rhinitis, Rhinorrhea, Congestion, No: Vertigo, Lightheadedness, Nosebleed, Neck Stiffness, Neck Pain, Dental Difficulties, Earache Cardiovascular: No: Chest Pain or Discomfort Respiratory: Positive: Cough, No: Shortness of Breath, Wheezing Gastrointestinal: Positive: Nausea, No: Vomiting, Diarrhea, Abdominal Pain Genitourinary: No: Dysuria Musculoskeletal: No: Pain Skin: No Rash Neurologic: No: Weakness Psychiatric: No: Depression Endocrine: No: Polydipsia Hematologic/Lymphatic: No: Easy Bruising Physical Exam Narrative GENERAL: The patient appears ill but not septic. SKIN: Warm and dry. Normal color. Normal turgor. HEAD: Atraumatic. Normocephalic. EYES: Pupils equal and round. No scleral icterus. No injection or drainage. ENT: No nasal bleeding, but clear nasal discharge. Mucous membranes pink and moist. TMs are clear bilaterally. Pharynx is unremarkable. Airway is patent. NECK: Trachea midline. Supple and nontender without significant lymphadenopathy. CARDIOVASCULAR: Regular rate and rhythm. RESPIRATORY: No accessory muscle use. Coarse to auscultation. Breath sounds equal bilaterally. GASTROINTESTINAL: Abdomen soft, non-tender, nondistended. Hepatic and splenic margins not palpable. MUSCULOSKELETAL: Extremities without clubbing, cyanosis, or edema. No obvious deformities. NEUROLOGICAL: Awake and alert. No obvious cranial nerve deficits. Motor grossly within normal limits. Five out of 5 muscle strength in the arms and legs. Normal speech. PSYCHIATRIC: Appropriate mood and affect; insight and judgment normal. Data Data Last Documented VS Vital Signs Date Time Temp Pulse Resp B/P (MAP) Pulse Ox O2 Delivery O2 Flow Rate FiO2 06/16/17 08:19 100.5 102 18 151/72 (98) 97 Orders Orders Influenzae A/B Antigen (06/16/17 08:25) MDM Medical Decision Making Medical Screen Exam Complete: Yes Emergency Medical Condition: Yes Differential Diagnosis Fever. Upper respiratory infection. Influenza. Nausea. Narrative Course Patient is felt to have influenza. Rapid influenza sent to the lab. Patient is given ibuprofen 600 mg by mouth. Patient given Zofran 4 mg ODT by mouth. Patient is given Tamiflu 75 mg by mouth now. Rapid influenza test is negative however based on the patient's history and physical I am going to treat her with Tamiflu 75 mg twice a day 5 days. Patient should continue Zofran 4 mg every 6 hours when necessary nausea. Patient to rest, push fluids, take Tylenol or ibuprofen as necessary and follow- up as needed. Patient should not return to work until fever free for 24 hours. Diagnosis Primary Impression: Influenza Referrals: Primary Care Physician Patient Instructions: General Instructions, H1N1 Influenza (ED) Additional Instructions: Rapid influenza test is negative however based on the patient's history and physical I am going to treat her with Tamiflu 75 mg twice a day 5 days. Patient should continue Zofran 4 mg every 6 hours when necessary nausea. Patient to rest, push fluids, take Tylenol or ibuprofen as necessary and follow- up as needed. Patient should not return to work until fever free for 24 hours. Med/Other Pt SpecificInfo: Prescription(s) given Scripts Ondansetron (Zofran) 4 Mg Tab 4 MG PO Q6HR Y for NAUSEA OR VOMITING, #12 TAB 0 Refills Prov: Shanon Dee MD 06/16/17 Oseltamivir (Tamiflu) 75 Mg Cap 75 MG PO BID for Mgmt Viral Infection for 5 Days, #10 CAP 0 Refills Prov: Shanon Dee MD 06/16/17 Disposition: 01 DISCHARGE HOME Condition: Stable Rush Murillo Jun 16, 2017 08:41
[2017-06-16] MEDS ORDERED: ZOFR4TAB PO (09:18)
[2017-06-16] MEDS ORDERED: OSEL75 PO (09:18)
== END 2017-06-16 09:30 | disposition home or self-care (01) ==
LOC: NEPD 08:16
DX: J11.1 Influenza due to unidentified influenza virus with other respiratory manifestations (principal); I10 Essential (primary) hypertension; M19.90 Unspecified osteoarthritis, unspecified site; F41.9 Anxiety disorder, unspecified; Z85.3 Personal history of malignant neoplasm of breast; Z79.899 Other long term (current) drug therapy
CPT/HCPCS: 87804; 99284